=== PATIENT | female | born 1930 | race Caucasian/White ===

== ENCOUNTER 2017-01-03 13:20 | Inpatient (IN) | payer MEDICARE, OTHER ==
[~2017-01-03] VITALS: Ht 160 cm; Wt 67.0 kg
[~2017-01-03 13:20] MED LIST: ALLERGY PILL PO; AMBI10TA PO; AMLO2.5T PO; ASPI325T PO; CALC600T10 PO; DONE5TAB14 PO; FOLI20CA PO; LEXA10TA PO; LOSA100T3 PO; MEGE40SU PO; METO25 PO; OXYB10TA PO; PREV10CA PO; TAB-TAB PO
[2017-01-03 13:31] VITALS: BP 175/87; PULSE 79; RESP 19; TEMP 97.9; O2SAT 94
[2017-01-03] MEDS ORDERED: SODIUM CHLORIDE 0.9% FLUSH 5 ML FLUSH IVF PRN (13:45)
[2017-01-03] MEDS ORDERED: ONDANSETRON HCL 4 MG/2 ML VIAL IV PUSH ONE (14:00)
[2017-01-03] MEDS ORDERED: HYDROmorphone HCL PF 1 MG/ML VIAL IV PUSH ONE (14:00)
[2017-01-03 14:01] LABS: BLOOD, URINE NEG (NEG); COMMENT (UR) CATH-CULT NOT IND; CULTURE IF INDICATED CATH CULTURE NOT IND; GLUCOSE,URINE NEG (NEG); HYALINE CAST, URINE 11 /lpf (RARE); KETONE, URINE NEG (NEG); MUCUS URINE FEW /lpf (OCC); NITRITE,URINE NEG (NEG); SQUAMOUS EPITHELIAL CELL URINE 1 /hpf (0-5); URINE COLOR LIGHT-YELLOW (YELLW/STRAW)
[2017-01-03 14:09] LABS: AUTOMATED NEUTROPHIL # 15.6 TH/MM3 (1.8-7.7); BASOPHIL % 0.2 % (0.0-2.0); EOSINOPHIL % 0.1 % (0.0-4.0); HEMATOCRIT 39.7 % (35.0-46.0); HEMO FLAGS DIFF FINAL; LYMPH % 8.5 % (9.0-44.0); LYMPHOCYTE # 1.5 TH/MM3 (1.0-4.8); MEAN CELL VOLUME 86.3 FL (80.0-100.0); MEAN CORPUSCULAR HEMOGLOBIN 29.4 PG (27.0-34.0); MONO % 4.9 % (0.0-8.0); NEUT % 86.3 % (16.0-70.0); PLATELET COUNT 189 TH/MM3 (150-450); RED BLOOD COUNT 4.61 MIL/MM3 (4.00-5.30)
[2017-01-03 14:12] LABS: ALT (GPT) 24 U/L (10-53); ANION GAP 8 MEQ/L (5-15); APTT (PATIENT) 39.5 SEC (24.3-30.1); AST (GOT) 19 U/L (15-37); BICARBONATE 27.2 MEQ/L (21.0-32.0); BLOOD UREA NITROGEN 30 MG/DL (7-18); CHLORIDE 108 MEQ/L (98-107); GLOMERULAR FILTRATION RATE 47 ML/MIN (>89); INTERNATIONAL NORMALIZED RATIO 3.6 RATIO; POTASSIUM 3.1 MEQ/L (3.5-5.1); SODIUM (NA) 143 MEQ/L (136-145)
[2017-01-03 14:14] LABS: ALKALINE PHOSPHATASE 64 U/L (45-117); TOTAL BILIRUBIN ADULT 0.6 MG/DL (0.2-1.0)
--- NOTE | 2017-01-03 14:21 | PD ---
HPI Chief Complaint: Hip Injury Time Seen by Provider: 13:43 Travel History International Travel<30 days: No Contact w/Intl Traveler<30days: No Traveled to known affect area: No History of Present Illness HPI 86-year-old female with history of multiple medical issues, currently on Coumadin according to her daughter, presents to the [facility] because she fell out of bed this morning and has not been able to walk, is complaining of right hip pain. She denies any head injury or loss of consciousness. Pain at rest is currently a 2 out of 10. She denies any other injuries. Patient states that she had tried to go walking on her own and fell out of bed. Modifying Factors: None Associated Signs & Symptoms: Fall out of bed, right hip pain Risk Factors: Elderly, legally blind PFSH Past Medical History Hx Anticoagulant Therapy: Yes (ASA) Arthritis: Yes (right hand) Asthma: No Autoimmune Disease: No Blood Disorders: No Cancer: No Cardiovascular Problems: Yes (SC, HTN) High Cholesterol: Yes Chemotherapy: No COPD: No Diminished Hearing: No Endocrine: No Genitourinary: No Immune Disorder: No Implanted Vascular Access Dvce: Yes Musculoskeletal: No Neurologic: No Psychiatric: No Reproductive: No Respiratory: No Myocardial Infarction: Yes (x2) Radiation Therapy: No Past Surgical History Abdominal Surgery: Yes (HYSTERECTOMY 1989) AICD: No Arteriovenous Shunt: No Cardiac Surgery: Yes (FOUR VESSEL BYPASS 1995) Ear Surgery: No Endocrine Surgery: No Eye Surgery: Yes (LENS IMPLANTS IN BOTH EYES.) Genitourinary Surgery: No Gynecologic Surgery: No Insulin Pump: No Joint Replacement: No Oral Surgery: No Pacemaker: No Other Surgery: Yes Social History Alcohol Use: No Tobacco Use: No Substance Use: No Allergies-Medications (Allergen,Severity, Reaction): Coded Allergies: Gentian Karen (Verified Allergy, Intermediate, Rash, 01/03/17) Petrolatum (Verified Allergy, Intermediate, Rash, 01/03/17) BASED OINTMENTS Levaquin (Verified Allergy, Unknown, 01/03/17) Reported Meds & Prescriptions Reported Meds & Active Scripts Active Reported Donepezil 5 Mg Tab 5 Mg PO DAILY Oxybutynin Chloride Er (Oxybutynin Chloride) 10 Mg Tab 10 Mg PO DAILY Amlodipine Besylate 2.5 mg (Amlodipine Besylate) 2.5 Mg Tab 1 Tab PO DAILY Megestrol Acetate 40 Mg/Ml Madelaine 40 Mg PO DAILY Lexapro (Escitalopram Oxalate) 10 Mg Tab 10 Mg PO Losartan Potassium-HCT 100-12.5 1 Tab Tab 1 Tab PO DAILY Folic Acid 20 Mg Cap 400 Mcg PO DAILY Prevagen (Apoaequorin) 10 Mg Cap 10 Mg PO Calcium + D (Calcium Carbonate-Vitamin D) 600 Mg Tab 1,200 Mg PO DAILY Multivitamin (Multivitamins) 1 Tab Tab 1 Tab PO DAILY [Allergy Pill] 25 Mg PO DAILY Aspirin 325 mg (Aspirin) 325 Mg Tab 325 Mg PO DAILY Ambien (Zolpidem Tartrate) 10 Mg Tab 10 Mg PO HS Metoprolol Tartrate 25 mg (Metoprolol Tartrate) 25 Mg Tab 25 Mg PO BID Review of Systems Except as stated in HPI: all other systems reviewed are Neg Physical Exam Narrative GENERAL: Well-nourished, well-developed elderly white female patient in no acute distress at rest. Awake and alert. SKIN: Warm and dry. HEAD: Normocephalic. EYES: No scleral icterus. No injection or drainage. Right eye conjunctival cloudiness notable, blind. NECK: Supple, trachea midline. CARDIOVASCULAR: Irregularly irregular. RESPIRATORY: Breath sounds equal bilaterally. No accessory muscle use. GASTROINTESTINAL: Abdomen soft, non-tender, nondistended. Pelvis: Stable, tender to palpation at the right hip area with decrease right hip flexion and extension secondary to pain. Right leg is shortened and externally rotated. Neurovascularly intact. MUSCULOSKELETAL: No cyanosis, or edema. BACK: Nontender without obvious deformity. No CVA tenderness. NEUROLOGICAL: Awake and alert. Blind, faces symmetrical. Motor and sensory grossly within normal limits. Five out of 5 muscle strength in all muscle groups , right leg limited by hip pain. Normal speech. Data Data Last Documented VS Vital Signs Date Time Temp Pulse Resp B/P Pulse Ox O2 Delivery O2 Flow Rate FiO2 01/03/17 13:31 97.9 79 19 175/87 94 Orders Electrocardiogram (01/03/17 13:36) Complete Blood Count With Diff (01/03/17 13:36) Comprehensive Metabolic Panel (01/03/17 13:36) Prothrombin Time / Inr (Pt) (01/03/17 13:36) Act Partial Throm Time (Ptt) (01/03/17 13:36) Urinalysis - C+S If Indicated (01/03/17 13:36) Type And Screen (01/03/17 13:36) Chest, Single Ap (01/03/17 13:36) Hip, Uni(Ap&Lat) W Ap Pelvis (01/03/17 13:36) Iv Access Insert/Monitor (01/03/17 13:36) Urinary Catheter Insert/Apply (01/03/17 13:36) Oximetry (01/03/17 13:36) Ecg Monitoring (01/03/17 13:36) Sodium Chloride 0.9% Flush (Ns Flush) (01/03/17 13:45) Hydromorphone Pf Inj (Dilaudid Pf Inj) (01/03/17 14:00) Ondansetron Inj (Zofran Inj) (01/03/17 14:00) Consult Orthopedic (01/03/17 ) Labs Laboratory Tests Test 01/03/17 01/03/17 01/03/17 13:30 13:40 13:45 Urine Color LIGHT-YELLOW Urine Turbidity CLEAR Urine pH 6.0 Urine Specific [place] 1.009 Urine Protein NEG mg/dL Urine Glucose (UA) NEG mg/dL Urine Ketones NEG mg/dL Urine Occult Blood NEG Urine Nitrite NEG Urine Bilirubin NEG Urine Urobilinogen LESS THAN 2.0 MG/DL Urine Leukocyte Esterase NEG Urine RBC 2 /hpf Urine WBC 2 /hpf Urine Squamous Epithelial 1 /hpf Cells Urine Hyaline Casts 11 /lpf Urine Mucus FEW /lpf Microscopic Urinalysis Comment CATH-CULT NOT IND Prothrombin Time 42.0 SEC Prothromb Time International 3.6 RATIO Ratio Activated Partial 39.5 SEC Thromboplast Time Sodium Level 143 MEQ/L Potassium Level 3.1 MEQ/L Chloride Level 108 MEQ/L Carbon Dioxide Level 27.2 MEQ/L Anion Gap 8 MEQ/L Blood Urea Nitrogen 30 MG/DL Creatinine 1.11 MG/DL Estimat Glomerular Filtration 47 ML/MIN Rate Random Glucose 132 MG/DL Calcium Level 8.9 MG/DL Total Bilirubin 0.6 MG/DL Aspartate Amino Transf 19 U/L (AST/SGOT) Alanine Aminotransferase 24 U/L (ALT/SGPT) Alkaline Phosphatase 64 U/L Total Protein 6.6 GM/DL Albumin 3.3 GM/DL Blood Type A POSITIVE Antibody Screen NEGATIVE Blood Bank Comment White Blood Count 18.0 TH/MM3 Red Blood Count 4.61 MIL/MM3 Hemoglobin 13.5 GM/DL Hematocrit 39.7 % Mean Corpuscular Volume 86.3 FL Mean Corpuscular Hemoglobin 29.4 PG Mean Corpuscular Hemoglobin 34.0 % Concent Red Cell Distribution Width 15.0 % Platelet Count 189 TH/MM3 Mean Platelet Volume 8.4 FL Neutrophils (%) (Auto) 86.3 % Lymphocytes (%) (Auto) 8.5 % Monocytes (%) (Auto) 4.9 % Eosinophils (%) (Auto) 0.1 % Basophils (%) (Auto) 0.2 % Neutrophils # (Auto) 15.6 TH/MM3 Lymphocytes # (Auto) 1.5 TH/MM3 Monocytes # (Auto) 0.9 TH/MM3 Eosinophils # (Auto) 0.0 TH/MM3 Basophils # (Auto) 0.0 TH/MM3 CBC Comment DIFF FINAL Differential Comment MDM Medical Decision Making Medical Screen Exam Complete: Yes Emergency Medical Condition: Yes Medical Record Reviewed: Yes Interpretation(s) Laboratory Tests Test 01/03/17 01/03/17 01/03/17 13:30 13:40 13:45 Urine Mucus FEW /lpf (OCC) Prothrombin Time 42.0 SEC (9.8-11.6) Activated Partial 39.5 SEC Thromboplast Time (24.3-30.1) Potassium Level 3.1 MEQ/L (3.5-5.1) Chloride Level 108 MEQ/L (98-107) Blood Urea Nitrogen 30 MG/DL (7-18) Creatinine 1.11 MG/DL (0.50-1.00) Estimat Glomerular Filtration 47 ML/MIN (>89) Rate Random Glucose 132 MG/DL (74-106) Albumin 3.3 GM/DL (3.4-5.0) White Blood Count 18.0 TH/MM3 (4.0-11.0) Neutrophils (%) (Auto) 86.3 % (16.0-70.0) Lymphocytes (%) (Auto) 8.5 % (9.0-44.0) Neutrophils # (Auto) 15.6 TH/MM3 (1.8-7.7) Differential Diagnosis Fall, right hip injuryfractures versus dislocation Narrative Course X-ray shows a right femoral neck fracture. At this point, the case was discussed with Dr. Hess who is in the OR and he states he would like the patient to be medically admitted with orthopedic consult. Case is discussed with Dr. Godwin for admission. Diagnosis Primary Impression: Fracture of femoral neck, right Admitting Information Admitting Physician Requests: Admit Daisy Tucker MD Jan 03, 2017 14:21
--- NOTE | 2017-01-03 14:53 | RADRPT ---
EXAM DATE/TIME: 01/03/2017 14:32 [facility] COMPARISON: CHEST SINGLE AP, March 23, 2016, 9:01. INDICATIONS : Fell today. MEDICAL HISTORY : None. SURGICAL HISTORY : CABG. ENCOUNTER: Initial ACUITY: 1 day PAIN SCORE: 0/10 LOCATION: Bilateral chest FINDINGS: Sternal wires from a previous mediastinum are noted. There is elevation of both the right and left h emidiaphragms. The lungs are clear. Heart and pulmonary vascularity are normal. Portions of the atul ny skeleton visualized are unremarkable. CONCLUSION: 1. Negative chest. 2. There is no pneumothorax. I do not see a displaced fracture. Earnest Estrella MD FACR on January 03, 2017 at 14:48 Board Certified Radiologist. This report was verified electronically.
--- NOTE | 2017-01-03 15:00 | RADRPT ---
EXAM DATE/TIME: 01/03/2017 14:32 [facility] COMPARISON: No previous studies available for comparison. INDICATIONS : Fell today. MEDICAL HISTORY : None. SURGICAL HISTORY : CABG. ENCOUNTER: Initial ACUITY: 1 day PAIN SCORE: 10/10 LOCATION: Right hip and pelvis FINDINGS: There is a subcapital fracture of the right femoral neck. The femoral head is aligned with the aceta bulum. Pelvis is otherwise intact. CONCLUSION: Subcapital fracture right femoral neck. Earnest Estrella MD FACR on January 03, 2017 at 14:53 Board Certified Radiologist. This report was verified electronically.
[2017-01-03] MEDS ORDERED: BISACODYL 10 MG SUPP PR PRN (15:30)
[2017-01-03] MEDS ORDERED: ACETAMINOPHEN 325 MG TAB PO PRN (15:30)
[2017-01-03] MEDS ORDERED: NALOXONE HCL 0.4 MG/ML AMP IV PRN (15:30)
[2017-01-03] MEDS ORDERED: MAGNESIUM HYDROXIDE SUSP 30 ML CUP PO PRN (15:30)
[2017-01-03] MEDS ORDERED: SODIUM CHLORIDE 0.9% FLUSH 5 ML FLUSH FLUSH PRN (15:30)
[2017-01-03] MEDS ORDERED: ONDANSETRON HCL 4 MG/2 ML VIAL IVP PRN (15:30)
[2017-01-03] MEDS ORDERED: HYZA50TA2 PO (15:50)
[2017-01-03] MEDS ORDERED: LEXA10TA PO (15:50)
[2017-01-03] MEDS ORDERED: CALC600T10 PO (15:50)
[2017-01-03] MEDS ORDERED: ASPI-156 PO (15:50)
[2017-01-03] MEDS ORDERED: FERR325T PO (15:50)
[2017-01-03] MEDS ORDERED: GNP3TAB PO (15:50)
[2017-01-03] MEDS ORDERED: FURO1TAB62 PO (15:50)
[2017-01-03] MEDS ORDERED: MEGE40SU PO (15:50)
[2017-01-03] MEDS ORDERED: WARF-60 PO (15:50)
[2017-01-03] MEDS ORDERED: ALAV10TA10 PO (15:50)
[2017-01-03] MEDS ORDERED: DONE10TA7 PO (15:50)
[2017-01-03] MEDS ORDERED: MIRTA15 PO (15:54)
[2017-01-03] MEDS ORDERED: METO25TA3 PO (15:54)
[2017-01-03] MEDS ORDERED: K-TA10TA PO (15:54)
[2017-01-03] MEDS ORDERED: OXYB10TA PO (15:54)
[2017-01-03 16:26] VITALS: O2SAT 94
[2017-01-03 16:27] VITALS: BP 123/58; PULSE 74; RESP 15; O2SAT 93
[2017-01-03] MEDS ORDERED: HYDROmorphone HCL PF 1 MG/ML VIAL IV PUSH PRN (16:45)
[2017-01-03] MEDS: oxyCODONE/ACETAMINOPHEN 5 MG/325 MG TAB PO PRN (17:48)
--- NOTE | 2017-01-03 20:05 | PD.CONS ---
cc: Tawanda Hess MD Right Femoral Neck Fracture (Shabana Archer) [facility] Service Orthopedic Surgeons Consult Requested By ER Staff Reason for Consult R Femoral Neck Fracture Primary Care Physician Carla Catherine MD Admission Diagnosis fall/right hip fracture Diagnoses: (1) Fracture of femoral neck, right Diagnosis: Principal (2) Deep vein blood clot of left lower extremity (3) Neurocognitive disorder (4) HLD (hyperlipidemia) (5) HTN (hypertension) (6) Rhabdomyolysis (7) CAD (coronary artery disease) (8) Ataxic gait Chief Complaint: R Femoral Neck Fx (Shabana Archer) History of Present Illness 86 year old female presented to [facility] ER after a trip and fall incident this morning. She complained of right hip pain after the fall. Radiographs revealed a right femoral neck fracture. She was admitted to [facility] and orthopaedic consultation was requested. The patient lives in an assisted living facility. She is legally blind and requires assistance with transfers. She tried to get up on her own this morning and sustained the fall. She had immediate pain to her right hip after the injury. She has had no other injuries to the right extremity prior to this injury. She was placed on Coumadin a couple weeks ago at [facility] after a DVT was found in her left groin. Her INR is 3.6 today. History is obtained from the patient and medical records. The patient does have dementia. No other injuries noted during the fall. (Shabana Archer) History of Present Illness The patient was admitted to the medical service with orthopedic consultation requested. She denies other extremity injury at the time of her fall. (Tawanda Hess MD) Review of Systems well outlined in medical records (Shabana Archer) 14 point review of systems reviewed and noted. (Tawanda Hess MD) Past Family Social History Past Medical History Dementia, HTN, DVT, CAD, Blind Past Surgical History CABG, Hysterectomy. Lens Sx Reported Medications see medical record (Shabana Archer) Allergies: Coded Allergies: Gentian Karen (Verified Allergy, Intermediate, Rash, 01/03/17) Petrolatum (Verified Allergy, Intermediate, Rash, 01/03/17) BASED OINTMENTS Levaquin (Verified Allergy, Unknown, 01/03/17) Active Ordered Medications Current Medications Medications (Trade) Dose Ordered Sig/Antonio Route Start Time Stop Time Status Last Admin (NS Flush) 2 ml UNSCH PRN FLUSH 01/03/17 15:30 (NS Flush) 2 ml BID FLUSH 01/03/17 21:00 (Tylenol) 650 mg Q4H PRN PO 01/03/17 15:30 (Zofran Inj) 4 mg Q6H PRN IVP 01/03/17 15:30 (Dulcolax Supp) 10 mg DAILY PRN MO 01/03/17 15:30 (Milk Of Magnesia Liq) 30 ml Q12H PRN PO 01/03/17 15:30 (Narcan Inj) 0.4 mg UNSCH PRN IV 01/03/17 15:30 (Lopressor) 25 mg BID PO 01/03/17 21:00 (Norvasc) 2.5 mg DAILY PO 01/04/17 09:00 (Aricept) 5 mg DAILY PO 01/04/17 09:00 (Ditropan) 10 mg DAILY PO 01/04/17 09:00 (Pill Splitter) 1 ea UNSCH PRN OTHER 01/04/17 09:00 (Cozaar) 100 mg DAILY PO 01/04/17 09:00 (Microzide) 12.5 mg DAILY PO 01/04/17 09:00 (Percocet 5-325 Mg) 1 tab Q6H PRN PO 01/03/17 16:45 01/03/17 17:48 (Dilaudid Pf Inj) 0.5 mg Q4H PRN IV PUSH 01/03/17 16:45 Reported Meds & Active Scripts Active Reported K-Tab (Potassium Chloride) 10 Meq Tab 10 Meq PO DAILY Oxybutynin ER 24 HR (Oxybutynin Chloride) 10 Mg Tab 10 Mg PO BID Mirtazapine 15 Mg Tab 15 Mg PO HS Metoprolol Tartrate 25 Mg Tab 12.5 Mg PO BID Warfarin 6 Mg Tab 6 Mg PO MOTUWEFRSA @ HS Gnp Melatonin (Melatonin) 3 Mg Tab 3 Mg PO HS Megestrol Liq (Megestrol Acetate) 40 Mg/Ml Susp 400 Mg PO BID Hyzaar (Losartan-Hydrochlorothiazide) 50-12.5 Mg Tab 1 Tab PO DAILY Alavert (Loratadine) 10 Mg Tab 10 Mg PO DAILY Lasix (Furosemide) 20 Mg Tab 20 Mg PO DAILY Ferrous Sulfate 325 Mg Tab 325 Mg PO BID Lexapro (Escitalopram Oxalate) 10 Mg Tab 10 Mg PO HS Donepezil 10 Mg Tab 10 Mg PO HS Calcium + D3 (Calcium Carbonate-Cholecalciferol) 600-200 Mg-Unit Tab 1 Tab PO DAILY Ecotrin (Aspirin) 325 Mg Tab 325 Mg PO HS Family History unrelated Social History Lives in assisted living. Denies alcohol or smoking. (Shabana Archer) Physical Exam Vital Signs Vital Signs Date Time Temp Pulse Resp B/P Pulse Ox O2 Delivery O2 Flow Rate FiO2 01/03/17 16:27 74 15 123/58 93 Room Air 01/03/17 16:26 94 21 01/03/17 13:31 97.9 79 19 175/87 94 Physical Exam RLE: Tenderness to palpation over right hip. LE is externally rotated. No swelling, ecchymosis or erythema noted. Good pedal pulses. Neurovascular intact. No calf pain. Negative Aleksandar's sign. Pain illicited with any attempts at range of motion. Freely able to wiggle toes. Laboratory Laboratory Tests Test 01/03/17 01/03/17 01/03/17 13:30 13:40 13:45 Urine Color LIGHT-YELLOW Urine Turbidity CLEAR Urine pH 6.0 Urine Specific [place] 1.009 Urine Protein NEG Urine Glucose (UA) NEG Urine Ketones NEG Urine Occult Blood NEG Urine Nitrite NEG Urine Bilirubin NEG Urine Urobilinogen LESS THAN 2.0 Urine Leukocyte Esterase NEG Urine RBC 2 Urine WBC 2 Urine Squamous Epithelial 1 Cells Urine Hyaline Casts 11 Urine Mucus FEW Microscopic Urinalysis Comment CATH-CULT NOT IND Prothrombin Time 42.0 Prothromb Time International 3.6 Ratio Activated Partial 39.5 Thromboplast Time Sodium Level 143 Potassium Level 3.1 Chloride Level 108 Carbon Dioxide Level 27.2 Anion Gap 8 Blood Urea Nitrogen 30 Creatinine 1.11 Estimat Glomerular Filtration 47 Rate Random Glucose 132 Calcium Level 8.9 Total Bilirubin 0.6 Aspartate Amino Transf 19 (AST/SGOT) Alanine Aminotransferase 24 (ALT/SGPT) Alkaline Phosphatase 64 Total Protein 6.6 Albumin 3.3 Blood Type A POSITIVE Antibody Screen NEGATIVE Blood Bank Comment White Blood Count 18.0 Red Blood Count 4.61 Hemoglobin 13.5 Hematocrit 39.7 Mean Corpuscular Volume 86.3 Mean Corpuscular Hemoglobin 29.4 Mean Corpuscular Hemoglobin 34.0 Concent Red Cell Distribution Width 15.0 Platelet Count 189 Mean Platelet Volume 8.4 Neutrophils (%) (Auto) 86.3 Lymphocytes (%) (Auto) 8.5 Monocytes (%) (Auto) 4.9 Eosinophils (%) (Auto) 0.1 Basophils (%) (Auto) 0.2 Neutrophils # (Auto) 15.6 Lymphocytes # (Auto) 1.5 Monocytes # (Auto) 0.9 Eosinophils # (Auto) 0.0 Basophils # (Auto) 0.0 CBC Comment DIFF FINAL Differential Comment (Shabana Archer) Physical Exam No other localizing signs of extremity injury. (Tawanda Hess MD) Result Diagram: 01/03/17 1345 01/03/17 1340 Imaging Last 48 hours Impressions Hip and Pelvis X-Ray 01/03/17 1336 Signed Impressions: Service Date/Time: Tuesday, January 03, 2017 14:32 - CONCLUSION: Subcapital fracture right femoral neck. Earnest Estrella MD FACR Chest X-Ray 01/03/17 1336 Signed Impressions: Service Date/Time: Tuesday, January 03, 2017 14:32 - CONCLUSION: 1. Negative chest. 2. There is no pneumothorax. I do not see a displaced fracture. Earnest Estrella MD FACR Course see medical record (Shabana Archer) Assessment & Plan Problem List: (1) Fracture of femoral neck, right (2) Deep vein blood clot of left lower extremity (3) Neurocognitive disorder (4) HLD (hyperlipidemia) (5) HTN (hypertension) (6) CAD (coronary artery disease) (7) Weakness Assessment and Plan The findings were discussed with the patient. Recommendations are given for prosthetic replacement of right femoral neck fracture, to allow for mobilization and pain control. Surgical management will require stabilization of INR levels. Disposition pending medical clearance and coagulation stabilization. Written by Shabana Archer (Ashley), acting as scribe for Dr. Hess on at 20:08. (Shabana Archer) Assessment and Plan The patient may be treated by myself for one of my partners depending on the timing and normalization of coagulation studies. The exam, history, and the medical decision-making described in the above note were completed with the assistance of the mid-level provider. I reviewed and agree with the findings presented. I attest that I had a [id number] encounter with the patient on the same day, and personally performed and documented my assessment and findings in the medical record. (Tawanda Hess MD) Shabana Archer Jan 03, 2017 20:05 Tawanda Hess MD Jan 03, 2017 22:24
[2017-01-03 20:40] VITALS: BP 117/57; PULSE 61; RESP 17; TEMP 97.1; O2SAT 94
[2017-01-03] MEDS: SODIUM CHLORIDE 0.9% FLUSH 5 ML FLUSH FLUSH SCH (21:00)
[2017-01-03] MEDS: METOPROLOL TARTRATE 25 MG TAB PO SCH (21:00)
--- NOTE | 2017-01-03 23:10 | HHI.HP ---
[facility] Carla Catherine MD Admission Diagnosis fall/right hip fracture Diagnoses: (1) Fracture of femoral neck, right Diagnosis: Principal (2) Deep vein blood clot of left lower extremity (3) Neurocognitive disorder (4) HLD (hyperlipidemia) (5) HTN (hypertension) (6) Rhabdomyolysis (7) CAD (coronary artery disease) (8) Ataxic gait Travel History International Travel<30 Days: No Contact w/Intl Traveler <30 Da: No Traveled to Known Affected Are: No History of Present Illness Ms. Hayes is a pleasant 86-year-old female with a history of atrial fibrillation, DVT, blindness who presented to the emergency department on 2016 after she fell out of her bed. Patient denies any chest pain, shortness of breath, dizziness or lightheadedness prior to her fall. Hip and pelvis x- ray shows subcapital fracture of the right femoral neck. Patient denies any changes in her bowel or bladder habits. Review of Systems ROS Limitations: Other (negative except as noted in the history of present illness) Past Family Social History Past Medical History Dementia, HTN, DVT, CAD, Blind Past Surgical History CABG, Hysterectomy. Lens Sx Reported Medications Donepezil 5 Mg Tab 5 Mg PO DAILY Oxybutynin Chloride Er (Oxybutynin Chloride) 10 Mg Tab 10 Mg PO DAILY Amlodipine Besylate 2.5 mg (Amlodipine Besylate) 2.5 Mg Tab 1 Tab PO DAILY Megestrol Acetate 40 Mg/Ml Madelaine 40 Mg PO DAILY Lexapro (Escitalopram Oxalate) 10 Mg Tab 10 Mg PO Losartan Potassium-HCT 100-12.5 1 Tab Tab 1 Tab PO DAILY Folic Acid 20 Mg Cap 400 Mcg PO DAILY Prevagen (Apoaequorin) 10 Mg Cap 10 Mg PO Calcium + D (Calcium Carbonate-Vitamin D) 600 Mg Tab 1,200 Mg PO DAILY Multivitamin (Multivitamins) 1 Tab Tab 1 Tab PO DAILY [Allergy Pill] 25 Mg PO DAILY Aspirin 325 mg (Aspirin) 325 Mg Tab 325 Mg PO DAILY Ambien (Zolpidem Tartrate) 10 Mg Tab 10 Mg PO HS Metoprolol Tartrate 25 mg (Metoprolol Tartrate) 25 Mg Tab 25 Mg PO BID Allergies: Coded Allergies: Gentian Karen (Verified Allergy, Intermediate, Rash, 01/03/17) Petrolatum (Verified Allergy, Intermediate, Rash, 01/03/17) BASED OINTMENTS Levaquin (Verified Allergy, Unknown, 01/03/17) Family History Father had diabetes. Mother had eye problems. Social History Lives in assisted living. Denies alcohol or smoking. Physical Exam Vital Signs Vital Signs Date Time Temp Pulse Resp B/P Pulse Ox O2 Delivery O2 Flow Rate FiO2 01/03/17 20:40 97.1 61 17 117/57 94 01/03/17 16:27 74 15 123/58 93 Room Air 01/03/17 16:26 94 21 01/03/17 13:31 97.9 79 19 175/87 94 Physical Exam GENERAL: This is a well-nourished, well-developed patient, in no apparent distress. Legally blind. SKIN: No rashes, ecchymoses or lesions. Warm and dry. HEAD: Atraumatic. Normocephalic. No temporal or scalp tenderness. EYES:No injection or drainage. Right eye cloudy conjunctiva noted. ENT: Nose without bleeding, purulent drainage or septal hematoma. Airway patent. NECK: Trachea midline. No lymphadenopathy. Supple, nontender, no meningeal signs. CARDIOVASCULAR: Irregularly irregular without murmurs, gallops, or rubs. No JVD. RESPIRATORY: Clear to auscultation. Breath sounds equal bilaterally. No wheezes , rales, or rhonchi. GASTROINTESTINAL: Abdomen soft, non-tender, nondistended. No guarding. MUSCULOSKELETAL: Extremities without clubbing, cyanosis, or edema. Pain on right lower ext movement. NEUROLOGICAL: Awake and alert. Cranial nerves II through XII intact. No focal neurological deficits. Normal speech. Laboratory Laboratory Tests Test 01/03/17 01/03/17 01/03/17 13:30 13:40 13:45 Urine Color LIGHT-YELLOW Urine Turbidity CLEAR Urine pH 6.0 Urine Specific [place] 1.009 Urine Protein NEG Urine Glucose (UA) NEG Urine Ketones NEG Urine Occult Blood NEG Urine Nitrite NEG Urine Bilirubin NEG Urine Urobilinogen LESS THAN 2.0 Urine Leukocyte Esterase NEG Urine RBC 2 Urine WBC 2 Urine Squamous Epithelial 1 Cells Urine Hyaline Casts 11 Urine Mucus FEW Microscopic Urinalysis Comment CATH-CULT NOT IND Prothrombin Time 42.0 Prothromb Time International 3.6 Ratio Activated Partial 39.5 Thromboplast Time Sodium Level 143 Potassium Level 3.1 Chloride Level 108 Carbon Dioxide Level 27.2 Anion Gap 8 Blood Urea Nitrogen 30 Creatinine 1.11 Estimat Glomerular Filtration 47 Rate Random Glucose 132 Calcium Level 8.9 Total Bilirubin 0.6 Aspartate Amino Transf 19 (AST/SGOT) Alanine Aminotransferase 24 (ALT/SGPT) Alkaline Phosphatase 64 Total Protein 6.6 Albumin 3.3 Blood Type A POSITIVE Antibody Screen NEGATIVE Blood Bank Comment White Blood Count 18.0 Red Blood Count 4.61 Hemoglobin 13.5 Hematocrit 39.7 Mean Corpuscular Volume 86.3 Mean Corpuscular Hemoglobin 29.4 Mean Corpuscular Hemoglobin 34.0 Concent Red Cell Distribution Width 15.0 Platelet Count 189 Mean Platelet Volume 8.4 Neutrophils (%) (Auto) 86.3 Lymphocytes (%) (Auto) 8.5 Monocytes (%) (Auto) 4.9 Eosinophils (%) (Auto) 0.1 Basophils (%) (Auto) 0.2 Neutrophils # (Auto) 15.6 Lymphocytes # (Auto) 1.5 Monocytes # (Auto) 0.9 Eosinophils # (Auto) 0.0 Basophils # (Auto) 0.0 CBC Comment DIFF FINAL Differential Comment Result Diagram: 01/03/17 1345 01/03/17 1340 Imaging Last Impressions Hip and Pelvis X-Ray 01/03/171335 Signed Impressions: Service Date/Time: Tuesday, January 03, 2017 14:32 - CONCLUSION: Subcapital fracture right femoral neck. Earnest Estrella MD FACR Chest X-Ray 01/03/176 Signed Impressions: Service Date/Time: Tuesday, January 03, 2017 14:32 - CONCLUSION: 1. Negative chest. 2. There is no pneumothorax. I do not see a displaced fracture. Earnest Estrella MD FACR Assessment and Plan Problem List: (1) Fracture of femoral neck, right ICD Code: S72.001A Status: Acute (2) Atrial fibrillation ICD Code: I48.91 Status: Acute (3) History of DVT (deep vein thrombosis) ICD Code: Z86.718 Status: Acute (4) HTN (hypertension) ICD Code: I10 Status: Chronic Assessment and Plan Ms. Hayes is a pleasant 86-year-old legally blind female with a history of atrial fibrillation and DVT who presents to the emergency department on 2016 due to mechanical fall from her bed. X-ray studies show right femoral neck fracture. - Right femoral neck fracture - ED physician discussed with orthopedic surgeon. It was not clear if patient will undergo surgery or not. - Will wait for Orthopedic consult. Patient's INR is 3.6 (On warfarin). If surgery is planned, INR can be reversed with FFP and possibly oral Vitamin K. - Continue pain medications - Tylenol, Percocet, Dilaudid when necessary. - Atrial fibrillation - History of DVT - continue metoprolol 25 mg twice a day. Patient is on warfarin for anticoagulations. Will hold it until orthopedic surgery plan is known. - Hypertension - continue amlodipine 2.5 mg, losartan 100 mg, HCTZ 12.5 mg daily. - Dementia - continue donepezil 5 mg daily - Blindness - due to Glaucoma, cataract. No acute issues. Full code. INR 3.6 Physician Certification 2 Midnight Certification Type: Admission for Inpatient Services Order for Inpatient Services The services are ordered in accordance with Medicare regulations or non- Medicare payer requirements, as applicable. In the case of services not specified as inpatient-only, they are appropriately provided as inpatient services in accordance with the 2-midnight benchmark. Estimated LOS (days): 3 days is the estimated time the patient will need to remain in the hospital, assuming treatment plan goals are met and no additional complications. Post-Hospital Plan: Not yet determined James Godwin DO Jan 03, 2017 11:10 pm
[2017-01-04] VITALS (10 sets, daily range): BP systolic 107–128; BP diastolic 52–61; PULSE 58–75; RESP 16–19; TEMP 95.6–99; O2SAT 94–99
[2017-01-04 05:09] LABS: AUTOMATED NEUTROPHIL # 9.2 TH/MM3 (1.8-7.7); BASOPHIL % 0.2 % (0.0-2.0); EOSINOPHIL # 0.3 TH/MM3 (0-0.4); EOSINOPHIL % 2.3 % (0.0-4.0); HEMO FLAGS DIFF FINAL; LYMPH % 10.5 % (9.0-44.0); LYMPHOCYTE # 1.2 TH/MM3 (1.0-4.8); MEAN CORPUSCULAR HEMOGLOBIN 29.3 PG (27.0-34.0); MEAN CORPUSCULAR HGB CONC 33.3 % (32.0-36.0); MONO % 5.2 % (0.0-8.0); NEUT % 81.8 % (16.0-70.0); PLATELET COUNT 154 TH/MM3 (150-450); RED BLOOD COUNT 4.09 MIL/MM3 (4.00-5.30); RED CELL DISTRIBUTION WIDTH 15.5 % (11.6-17.2); WHITE BLOOD COUNT 11.3 TH/MM3 (4.0-11.0)
--- NOTE | 2017-01-04 06:51 | PD.ORT.PN ---
Subjective Subjective Remarks s/p fall at [facility] right hip pain. no other complaints. on coumadin. INR 3.6 last night Objective Vitals Vital Signs Date Time Temp Pulse Resp B/P Pulse Ox O2 Delivery O2 Flow Rate FiO2 01/04/17 02:16 Nasal Cannula 01/04/17 00:55 95.6 58 18 107/57 97 01/03/17 20:40 97.1 61 17 117/57 94 01/03/17 16:27 74 15 123/58 93 Room Air 01/03/17 16:26 94 21 01/03/17 13:31 97.9 79 19 175/87 94 I/O 01/03/17 01/03/17 01/03/17 01/04/17 01/04/17 01/04/17 07:00 15:00 23:00 07:00 15:00 23:00 Intake Total 240 ml Output Total 450 ml Balance -210 ml Intake Oral 240 ml Output Urine Total 450 ml # Bowel Movements 0 Result Diagram: 01/04/17 0433 01/04/17 0433 Other Results Laboratory Tests Test 01/03/17 13:40 Prothrombin Time 42.0 SEC (9.8-11.6) Prothromb Time International 3.6 RATIO Ratio Imaging Last 24 hours Impressions Hip and Pelvis X-Ray 01/03/171335 Signed Impressions: Service Date/Time: Tuesday, January 03, 2017 14:32 - CONCLUSION: Subcapital fracture right femoral neck. Earnest Estrella MD FACR Chest X-Ray 01/03/171335 Signed Impressions: Service Date/Time: Tuesday, January 03, 2017 14:32 - CONCLUSION: 1. Negative chest. 2. There is no pneumothorax. I do not see a displaced fracture. Earnest Estrella MD FACR Objective Remarks RLE: pain with motion of hip. nvi distally Assessment & Plan Problem List: (1) Fracture of femoral neck, right (2) Deep vein blood clot of left lower extremity (3) Neurocognitive disorder (4) HLD (hyperlipidemia) (5) HTN (hypertension) (6) CAD (coronary artery disease) (7) Weakness Assessment and Plan 1) Right Femoral Neck Fx -sign consents -resume diet -INR too high to proceed -1 unit FFP and 10mg of Vit K -recheck INR after all given -NPO after MN Thanh Magana Jan 04, 2017 06:51
[2017-01-04] MEDS ORDERED: SODIUM CHLOR 0.9% 250 ML INJ 250 ML IV ONE ×2 (07:00→18:30)
[2017-01-04] MEDS ORDERED: PHYTONADIONE 10 MG/ML VIAL SQ ONE (07:00)
[2017-01-04] MEDS ORDERED: PILL SPLITTER OTHER PRN (09:00)
[2017-01-04] MEDS ORDERED: [UNRECOGNIZED DRUG - OTHER] PO SCH (09:00)
[2017-01-04] MEDS: amLODIPine BESYLATE 5 MG TAB PO SCH (10:14)
[2017-01-04] MEDS: HYDROCHLOROTHIAZIDE 12.5 MG CAP PO SCH (10:14)
[2017-01-04] MEDS: LOSARTAN 50 MG TAB PO SCH (10:14)
[2017-01-04] MEDS: METOPROLOL TARTRATE 25 MG TAB PO SCH ×2 (10:14→21:00)
[2017-01-04] MEDS: SODIUM CHLORIDE 0.9% FLUSH 5 ML FLUSH FLUSH SCH ×2 (10:15→22:55)
[2017-01-04] MEDS: OXYBUTYNIN CHLORIDE 5 MG TAB PO SCH (10:15)
[2017-01-04] MEDS: DONEPEZIL HCL 5 MG TAB PO SCH (10:15)
[2017-01-04] MEDS: oxyCODONE/ACETAMINOPHEN 5 MG/325 MG TAB PO PRN (13:44)
[2017-01-04 17:12] LABS: INTERNATIONAL NORMALIZED RATIO 1.7 RATIO; PROTHROMBIN TIME - PATIENT 18.8 SEC (9.8-11.6)
--- NOTE | 2017-01-04 17:59 | EKG ---
Date Performed: 01/03/2017 Time Performed: 15:02:03 PTAGE: 86 years EKG: Sinus rhythm WITH OCCASIONAL SUPRAVENTRICULAR PREMATURE COMPLEXES NONSPECIFIC T-WAVE ABNORMALITY Since previous t racing, no significant change noted BORDERLINE ECG PREVIOUS TRACING : 03/23/2016 06.44 DOCTOR: Eleno Beatty Interpretating Date/Time 01/04/2017 17:57:50
[2017-01-04] MEDS: LACTATED RINGER'S 1000 ML IV SCH (22:30)
[2017-01-04] MEDS: SODIUM CHLORID 0.9% 500 ML IV SCH (22:30)
[2017-01-04] MEDS ORDERED: INSULIN HUMAN REGULAR 1,000 UNITS/10 ML VIAL SQ PRN (22:30)
[2017-01-05 04:10] LABS: INTERNATIONAL NORMALIZED RATIO 1.1 RATIO; PROTHROMBIN TIME - PATIENT 12.6 SEC (9.8-11.6)
[2017-01-05 04:35] VITALS: BP 151/68; PULSE 88; RESP 18; TEMP 97.9; O2SAT 95
[2017-01-05] MEDS: METOPROLOL TARTRATE 25 MG TAB PO SCH ×2 (05:44→21:32)
[2017-01-05] MEDS ORDERED: TRANEXAMIC ACID INJ 825 MG in SODIUM CHLORIDE 0.9% INJ 100 ML IV SCH (06:15)
[2017-01-05] MEDS ORDERED: GENTAMICIN SULFATE 80 MG/2 ML VIAL ONE (06:30)
--- NOTE | 2017-01-05 06:42 | PD.ORT.PN ---
Subjective Subjective Remarks s/p fall at assisted right hip pain. no other complaints. on coumadin. INR 3.6 yesterday down to 1.1 now Objective Vitals Vital Signs Date Time Temp Pulse Resp B/P Pulse Ox O2 Delivery O2 Flow Rate FiO2 01/04/17 23:35 97.0 75 18 123/59 94 01/04/17 20:50 98.7 75 17 109/52 94 01/04/17 19:00 Nasal Cannula 2.00 01/04/17 17:53 Nasal Cannula 2.00 01/04/17 16:15 98.0 74 16 128/60 98 01/04/17 12:15 98.8 65 18 111/61 98 01/04/17 12:12 98.0 70 16 121/56 97 01/04/17 11:55 99.0 67 19 115/52 99 01/04/17 09:30 97 Nasal Cannula 2.00 01/04/17 08:00 97 Nasal Cannula 2.00 01/04/17 07:59 97.4 65 18 113/54 97 01/04/17 06:45 96.0 60 17 117/57 98 I/O 01/04/17 01/04/17 01/04/17 01/05/17 01/05/17 01/05/17 07:00 15:00 23:00 07:00 15:00 23:00 Intake Total 0 ml 360 ml 480 ml Output Total 350 ml 220 ml 500 ml Balance -350 ml 140 ml -20 ml Intake Oral 0 ml 360 ml 480 ml Output Urine Total 350 ml 220 ml 500 ml # Bowel Movements 0 0 Result Diagram: 01/04/17 0433 01/04/17 0433 Other Results Laboratory Tests Test 01/04/17 01/05/17 16:56 03:18 Prothrombin Time 18.8 SEC 12.6 SEC (9.8-11.6) (9.8-11.6) Prothromb Time International 1.7 RATIO 1.1 RATIO Ratio Imaging Last 24 hours Impressions Hip and Pelvis X-Ray 01/03/171335 Signed Impressions: Service Date/Time: Tuesday, January 03, 2017 14:32 - CONCLUSION: Subcapital fracture right femoral neck. Earnest Estrella MD FACR Chest X-Ray 01/03/171335 Signed Impressions: Service Date/Time: Tuesday, January 03, 2017 14:32 - CONCLUSION: 1. Negative chest. 2. There is no pneumothorax. I do not see a displaced fracture. Earnest Estrella MD FACR Objective Remarks RLE: pain with motion of hip. nvi distally Assessment & Plan Problem List: (1) Fracture of femoral neck, right (2) Deep vein blood clot of left lower extremity (3) Neurocognitive disorder (4) HLD (hyperlipidemia) (5) HTN (hypertension) (6) CAD (coronary artery disease) (7) Weakness Assessment and Plan 1) Right Femoral Neck Fx -sign consents -surgery today Thanh Magana Jan 05, 2017 06:42
[2017-01-05] MEDS ORDERED: VANCOMYCIN HCL 1000 MG VIAL ONE (06:47)
[2017-01-05] MEDS ORDERED: ceFAZolin 2 GM PREMIX 50 ML ONE (06:47)
--- NOTE | 2017-01-05 08:04 | PD.OP ---
cc: Bull Martinez MD Operative Report Date of Surgery: Jan 05, 2017 Preoperative Diagnosis: Displaced right femoral neck fracture Postoperative Diagnosis: Procedure: right hip hemiarthroplasty Anesthesia: Gen. Surgeon: Bull Martinez Special Event Assistant(s): DARIELA Ortiz PA-C The surgical procedure was assisted by my physician microbiology lab assistant. My P.A. presence was necessary throughout this case for the manipulation and positioning of the surgical extremity. My P.A. was assisting me throughout the duration of this procedure. The skill set of a physician microbiology lab assistant was medically necessary to complete this procedure. During the surgical case the certified surgical assistant was working at the back table and the physician microbiology lab assistant was directly assisting me. Operation and Findings: PLAN OF ACTIVITY Weight bear as tolerated. IMPLANTS USED CC videouy Corail size 12 stem with size [47] bipolar head and [+1.5] neck. DRAIN: 7 mm Warren-Childers drain DETAILS OF PROCEDURE This patient was brought into the operating room and placed on the OR table. The patient was given anesthesia. The patient received IV antibiotics. The patient was then placed in lateral decubitus position. The right hip and leg were prepped with alcohol, followed by Hibiclens and draped in a usual sterile fashion. Clean air was used for this procedure. Time out procedure was performed. The procedure began with a 5 inch incision over the posterolateral hip. The subcutaneous tissue was dissected with the Bovie. The iliotibial band were split in line with fibers. The Charnley retractor was placed. The piriformis and external rotators were released from the femur and tagged with a #1 Vicryl suture. The capsule is now incised and tagged with #1 Vicryl. The femoral neck fracture was now visualized. A corkscrew was now used to remove the femoral head. The femoral head was sized and measured. Soft tissue was now protected. The hip skid was placed underneath the femoral neck. An oscillating saw was used to make a femoral neck cut. At this point attention was turned to preparation of the proximal femur. A box osteotome was used to remove the lateral cortex of the femoral neck. The T- handle reamer was used to open the femoral canal. Next, the canal was broached. A lateralizing reamer was used to help lateralize the prosthesis. At this point a trial head and neck were placed. The hip was reduced. The patient was found to have excellent stability with good range of motion. Trial components were removed. Soft tissue and bone were thoroughly irrigated. A Corail stem was now opened. The stem was now impacted into the proximal femur. Care was taken to keep appropriate anteversion. The head and neck were now impacted onto the stem. The hip was again reduced. The hip was found to have good range of motion and good stability. Leg lengths were clinically equal. The wound was thoroughly irrigated. The capsule, piriformis and iliotibial band were closed with #1 Vicryl. Subcutaneous tissue was closed with 3-0 Vicryl. The skin was closed with yoselin. A sterile dressing was applied with Primapore. The patient was placed into a knee immobilizer. The patient was awakened and transferred to the recovery room in stable condition. Needle and sponge counts were correct. Bull Martinez MD Jan 05, 2017 08:04
[2017-01-05] MEDS ORDERED: MORPHINE SULFATE 4 MG/ML INJ IV PUSH PRN (08:15)
[2017-01-05] MEDS ORDERED: SODIUM CHLORIDE 0.9% FLUSH 5 ML FLUSH IVF PRN (08:15)
[2017-01-05] MEDS ORDERED: Post-op Orders (for Pharmacy) MISC XX ONE (08:15)
[2017-01-05] MEDS ORDERED: ERGOCALCIFEROL (VIT D2) 50,000 UNIT CAP PO ONE (08:15)
[2017-01-05] MEDS ORDERED: ACETAMINOPHEN 1000 MG/100 ML VIAL IV ONE (08:27)
[2017-01-05] MEDS: CHOLECALCIFEROL (VIT D3) 5000 UNIT CAP PO SCH (09:00)
[2017-01-05] MEDS: HYDROCHLOROTHIAZIDE 12.5 MG CAP PO SCH (09:00)
[2017-01-05] MEDS: LOSARTAN 50 MG TAB PO SCH (09:00)
[2017-01-05] MEDS: SODIUM CHLORIDE 0.9% FLUSH 5 ML FLUSH IVF SCH ×2 (09:00→21:00)
[2017-01-05] MEDS: OXYBUTYNIN CHLORIDE 5 MG TAB PO SCH (09:00)
[2017-01-05] MEDS: amLODIPine BESYLATE 5 MG TAB PO SCH (09:00)
[2017-01-05] MEDS: DONEPEZIL HCL 5 MG TAB PO SCH (09:00)
[2017-01-05] MEDS ORDERED: HYDR-3366 PO (09:03)
[2017-01-05] MEDS ORDERED: WALKER/ADULT/FO1 MIS (09:03)
[2017-01-05 10:50] VITALS: BP 112/54; PULSE 73; RESP 16; TEMP 98; O2SAT 97
--- NOTE | 2017-01-05 11:34 | RADRPT ---
EXAM DATE/TIME: 01/05/2017 09:40 [place] COMPARISON: No previous studies available for comparison. INDICATIONS: Post op right hip surgery. MEDICAL HISTORY: None. SURGICAL HISTORY: None. ENCOUNTER: Initial ACUITY: 1 day PAIN SCORE: Non-responsive. LOCATION: Right hip and pelvis FINDINGS: The patient is status post right hip replacement with prosthesis in good position. No fracture or di slocation is noted. CONCLUSION: 1. Status post right hip replacement with prosthesis in good position. Zane Hardy MD on January 05, 2017 at 11:11 Board Certified Radiologist. This report was verified electronically.
[2017-01-05] MEDS: ceFAZolin 2 GM PREMIX 50 ML IV SCH ×2 (11:59→17:35)
[2017-01-05] MEDS ORDERED: LACTATED RINGER'S 1000 ML INJ 1,000 ML IV ONE (12:00)
[2017-01-05] MEDS ORDERED: PROPOFOL 200 MG/20 ML AMP IV ONE (12:00)
[2017-01-05] MEDS ORDERED: ONDANSETRON HCL 4 MG/2 ML VIAL IV PUSH ONE (12:00)
[2017-01-05] MEDS ORDERED: SODIUM CHLOR 0.9% 250 ML INJ 250 ML IV ONE (12:00)
[2017-01-05] MEDS ORDERED: PHENYLEPH/NS 1000 MCG/10 ML SYR IV ONE (12:00)
[2017-01-05 12:50] VITALS: BP 118/59; PULSE 70; RESP 16; TEMP 98.1; O2SAT 98
[2017-01-05 13:25] VITALS: O2SAT 92
--- NOTE | 2017-01-05 14:01 | HHI.PR ---
Subjective Remarks Follow up for right hip fracture s/p right hip hemiarthroplasty. Patient is doing well post surgery. She is sitting in the chair. Does not want to be disturbed. Denies any acute concerns. Objective Vitals Vital Signs Date Time Temp Pulse Resp B/P Pulse Ox O2 Delivery O2 Flow Rate FiO2 01/05/17 13:25 92 Nasal Cannula 2.00 01/05/17 10:50 98.0 73 16 112/54 97 01/05/17 10:00 97.9 67 14 111/58 97 Nasal Cannula 2 01/05/17 09:45 81 14 112/39 95 Nasal Cannula 2 01/05/17 09:30 66 14 106/55 97 Nasal Cannula 2 01/05/17 09:15 65 14 119/57 96 Nasal Cannula 2 01/05/17 09:00 64 15 115/60 97 Nasal Cannula 2 01/05/17 08:45 60 15 106/66 98 Nasal Cannula 2 01/05/17 08:30 60 15 104/54 98 Nasal Cannula 2 01/05/17 08:17 98.2 64 12 107/48 98 Simple Mask 8 01/05/17 04:35 97.9 88 18 151/68 95 01/04/17 23:35 97.0 75 18 123/59 94 01/04/17 20:50 98.7 75 17 109/52 94 01/04/17 19:00 Nasal Cannula 2.00 01/04/17 17:53 Nasal Cannula 2.00 01/04/17 16:15 98.0 74 16 128/60 98 I/O 01/04/17 01/04/17 01/04/17 01/05/17 01/05/17 01/05/17 07:00 15:00 23:00 07:00 15:00 23:00 Intake Total 0 ml 360 ml 480 ml 1150 ml Output Total 350 ml 220 ml 500 ml 320 ml Balance -350 ml 140 ml -20 ml 830 ml Intake Oral 0 ml 360 ml 480 ml 0 ml IV Total 150 ml Other 1000 ml Output Urine Total 350 ml 220 ml 500 ml 250 ml Drainage Total 20 ml Estimated Blood Loss 50 ml # Bowel Movements 0 0 Result Diagram: 01/04/17 0433 01/04/17432 Imaging Last Impressions Hip and Pelvis X-Ray 01/05/17800 Signed Impressions: Service Date/Time: Thursday, January 05, 2017 09:40 - CONCLUSION: 1. Status post right hip replacement with prosthesis in good position. Zane Hardy MD Chest X-Ray 01/03/17 1336 Signed Impressions: Service Date/Time: Tuesday, January 03, 2017 14:32 - CONCLUSION: 1. Negative chest. 2. There is no pneumothorax. I do not see a displaced fracture. Earnest Estrella MD FACR Objective Remarks GENERAL: Alert but sleepy, sitting in her chair. NAD. SKIN: Warm and dry. HEAD: Normocephalic. EYES: No scleral icterus. No injection or drainage. NECK: Supple, trachea midline. No JVD or lymphadenopathy. CARDIOVASCULAR: Regular rate and rhythm without murmurs, gallops, or rubs. RESPIRATORY: Breath sounds equal bilaterally. No accessory muscle use. GASTROINTESTINAL: Abdomen soft, non-tender, nondistended. MUSCULOSKELETAL: No cyanosis, or edema. s/p right hip hemiarthroplasty. A/P Problem List: (1) Fracture of femoral neck, right ICD Code: S72.001A Status: Acute (2) Atrial fibrillation ICD Code: I48.91 Status: Acute (3) History of DVT (deep vein thrombosis) ICD Code: Z86.718 Status: Acute (4) HTN (hypertension) ICD Code: I10 Status: Chronic Assessment and Plan Ms. Hayes is a pleasant 86-year-old legally blind female with a history of atrial fibrillation and DVT who presents to the emergency department on 2016 due to mechanical fall from her bed. X-ray studies show right femoral neck fracture. - Right femoral neck fracture - s/p right hip hemiarthroplasty. - Lovenox 30mg Q24hrs starting 01/06/2017. - Continue pain medications - Tylenol, [place], Morphine PRN. - Dulcolax supp, Milk of Mag for Bowel movement. - Atrial fibrillation - History of DVT - continue metoprolol 25 mg twice a day. - Warfarin 6mg Qday - restarted on 01/05/2017. - Hypertension - continue amlodipine 2.5 mg, losartan 100 mg, HCTZ 12.5 mg daily. - Dementia - continue donepezil 5 mg daily - Blindness - due to Glaucoma, cataract. No acute issues. Full code. Warfarin. Discharge Plan: Patient does not want to go to a rehab. Possibly home with home health when she is ready to be discharged. James Godwin DO Jan 05, 2017 14:01
--- NOTE | 2017-01-05 14:01 | HHI.PR ---
Subjective Remarks Late entry for 01/04/2017. Follow up for right hip fracture. Ms. Hayes is doing well. Waiting for surgery. No acute concerns. Denies any fever, chills. Objective Vitals Vital Signs Date Time Temp Pulse Resp B/P Pulse Ox O2 Delivery O2 Flow Rate FiO2 01/05/17 13:25 92 Nasal Cannula 2.00 01/05/17 10:50 98.0 73 16 112/54 97 01/05/17 10:00 97.9 67 14 111/58 97 Nasal Cannula 2 01/05/17 09:45 81 14 112/39 95 Nasal Cannula 2 01/05/17 09:30 66 14 106/55 97 Nasal Cannula 2 01/05/17 09:15 65 14 119/57 96 Nasal Cannula 2 01/05/17 09:00 64 15 115/60 97 Nasal Cannula 2 01/05/17 08:45 60 15 106/66 98 Nasal Cannula 2 01/05/17 08:30 60 15 104/54 98 Nasal Cannula 2 01/05/17 08:17 98.2 64 12 107/48 98 Simple Mask 8 01/05/17 04:35 97.9 88 18 151/68 95 01/04/17 23:35 97.0 75 18 123/59 94 01/04/17 20:50 98.7 75 17 109/52 94 01/04/17 19:00 Nasal Cannula 2.00 01/04/17 17:53 Nasal Cannula 2.00 01/04/17 16:15 98.0 74 16 128/60 98 I/O 01/04/17 01/04/17 01/04/17 01/05/17 01/05/17 01/05/17 07:00 15:00 23:00 07:00 15:00 23:00 Intake Total 0 ml 360 ml 480 ml 1150 ml Output Total 350 ml 220 ml 500 ml 320 ml Balance -350 ml 140 ml -20 ml 830 ml Intake Oral 0 ml 360 ml 480 ml 0 ml IV Total 150 ml Other 1000 ml Output Urine Total 350 ml 220 ml 500 ml 250 ml Drainage Total 20 ml Estimated Blood Loss 50 ml # Bowel Movements 0 0 Result Diagram: 01/04/17 0433 01/04/17 0433 Imaging Last Impressions Hip and Pelvis X-Ray 01/05/17 0801 Signed Impressions: Service Date/Time: Thursday, January 05, 2017 09:40 - CONCLUSION: 1. Status post right hip replacement with prosthesis in good position. Zane Hardy MD Chest X-Ray 01/03/17 1336 Signed Impressions: Service Date/Time: Tuesday, January 03, 2017 14:32 - CONCLUSION: 1. Negative chest. 2. There is no pneumothorax. I do not see a displaced fracture. Earnest Estrella MD FACR Objective Remarks GENERAL: Alert, NAD. Legally blind. SKIN: Warm and dry. HEAD: Normocephalic. EYES: No scleral icterus. No injection or drainage. Right eye cloudy conjunctiva noted. NECK: Supple, trachea midline. No JVD or lymphadenopathy. CARDIOVASCULAR: Regular rate and rhythm without murmurs, gallops, or rubs. RESPIRATORY: Breath sounds equal bilaterally. No accessory muscle use. GASTROINTESTINAL: Abdomen soft, non-tender, nondistended. MUSCULOSKELETAL: No cyanosis, or edema. Right lower ext pain on any movement. BACK: Nontender without obvious deformity. No CVA tenderness. A/P Problem List: (1) Fracture of femoral neck, right ICD Code: S72.001A Status: Acute (2) Atrial fibrillation ICD Code: I48.91 Status: Acute (3) History of DVT (deep vein thrombosis) ICD Code: Z86.718 Status: Acute (4) HTN (hypertension) ICD Code: I10 Status: Chronic Assessment and Plan Ms. Hayes is a pleasant 86-year-old legally blind female with a history of atrial fibrillation and DVT who presents to the emergency department on 2016 due to mechanical fall from her bed. X-ray studies show right femoral neck fracture. - Right femoral neck fracture - Orthopedic surgery tomorrow. INR was reversed with FFP and vitamin K. - Continue pain medications - Tylenol, Percocet, Dilaudid when necessary. - Atrial fibrillation - History of DVT - continue metoprolol 25 mg twice a day. - Hypertension - continue amlodipine 2.5 mg, losartan 100 mg, HCTZ 12.5 mg daily. - Dementia - continue donepezil 5 mg daily - Blindness - due to Glaucoma, cataract. No acute issues. Full code. Warfarin on hold. James Godwin DO Jan 05, 2017 14:01
[2017-01-05] MEDS: SODIUM CHLORID 0.9% 500 ML IV SCH (15:10)
[2017-01-05] MEDS: ACETAMINOPHEN/HYDROcodone 325 MG/7.5 MG TAB PO PRN (15:36)
[2017-01-05] MEDS: WARFARIN SOD 6 MG TAB PO SCH (15:36)
[2017-01-05 19:35] VITALS: BP 106/54; PULSE 75; RESP 16; TEMP 97.1; O2SAT 96
[2017-01-05] MEDS: LACTATED RINGER'S 1000 ML IV SCH (22:30)
[2017-01-06] VITALS (7 sets, daily range): BP systolic 98–120; BP diastolic 43–67; PULSE 68–86; RESP 17–18; TEMP 95.8–99; O2SAT 93–96
[2017-01-06] MEDS: ceFAZolin 2 GM PREMIX 50 ML IV SCH (01:00)
[2017-01-06] MEDS: ACETAMINOPHEN/HYDROcodone 325 MG/7.5 MG TAB PO PRN ×2 (01:06→07:09)
--- NOTE | 2017-01-06 06:38 | PD.ORT.PN ---
Subjective Subjective Remarks POD 1 s/p Right hip bipolar hemiarthroplasty doing well. pain controlled. nurses report out of bed and in chair yesterday Objective Vitals Vital Signs Date Time Temp Pulse Resp B/P Pulse Ox O2 Delivery O2 Flow Rate FiO2 01/06/17 04:00 97.7 68 18 110/51 95 01/06/17 00:15 96.9 84 18 118/56 95 01/05/17 21:37 Nasal Cannula 2.00 01/05/17 19:35 97.1 75 16 106/54 96 01/05/17 18:34 Nasal Cannula 2.00 01/05/17 16:36 20 01/05/17 13:25 92 Nasal Cannula 2.00 01/05/17 12:50 98.1 70 16 118/59 98 01/05/17 10:50 98.0 73 16 112/54 97 01/05/17 10:00 97.9 67 14 111/58 97 Nasal Cannula 2 01/05/17 09:45 81 14 112/39 95 Nasal Cannula 2 01/05/17 09:30 66 14 106/55 97 Nasal Cannula 2 01/05/17 09:15 65 14 119/57 96 Nasal Cannula 2 01/05/17 09:00 64 15 115/60 97 Nasal Cannula 2 01/05/17 08:45 60 15 106/66 98 Nasal Cannula 2 01/05/17 08:30 60 15 104/54 98 Nasal Cannula 2 01/05/17 08:17 98.2 64 12 107/48 98 Simple Mask 8 I/O 01/05/17 01/05/17 01/05/17 01/06/17 01/06/17 01/06/17 07:00 15:00 23:00 07:00 15:00 23:00 Intake Total 1150 ml 240 ml Output Total 325 ml 600 ml Balance 825 ml -360 ml Intake Oral 0 ml 240 ml IV Total 150 ml Other 1000 ml Output Urine Total 250 ml 600 ml Drainage Total 25 ml 0 ml Estimated Blood Loss 50 ml # Bowel Movements 0 Result Diagram: 01/04/17 0433 01/04/17 0433 Imaging Last 24 hours Impressions Hip and Pelvis X-Ray 01/03/17 4186 Signed Impressions: Service Date/Time: Tuesday, January 03, 2017 14:32 - CONCLUSION: Subcapital fracture right femoral neck. Earnest Estrella MD FACR Chest X-Ray 01/03/17 1336 Signed Impressions: Service Date/Time: Tuesday, January 03, 2017 14:32 - CONCLUSION: 1. Negative chest. 2. There is no pneumothorax. I do not see a displaced fracture. Earnest Estrella MD FACR Objective Remarks RLE: dressings clean and dry. intact. NVI. +drain. + knee brace Assessment & Plan Problem List: (1) Fracture of femoral neck, right (2) Deep vein blood clot of left lower extremity (3) Neurocognitive disorder (4) HLD (hyperlipidemia) (5) HTN (hypertension) (6) CAD (coronary artery disease) (7) Weakness Assessment and Plan 1) Right Femoral Neck Fx s/p hemiarthroplasty - POD 1 -WBAT -posterior hip precautions -knee brace while in bed -CM for rehab placement -coumadin management by medical team -bridge with lovenox -plan for Dc to rehab tuesday -f/u with [facility] or [facility] in 2 weeks Thanh Magana Jan 06, 2017 06:38
[2017-01-06 06:59] LABS: HEMATOCRIT 29.2 % (35.0-46.0); REVIEW FLAG FINAL
[2017-01-06 07:04] LABS: PROTHROMBIN TIME - PATIENT 11.3 SEC (9.8-11.6)
[2017-01-06] MEDS: ENOXAPARIN SODIUM 30 MG/0.3 ML SYRINGE SQ SCH (07:09)
[2017-01-06] MEDS: METOPROLOL TARTRATE 25 MG TAB PO SCH ×2 (08:24→21:37)
[2017-01-06] MEDS: DONEPEZIL HCL 5 MG TAB PO SCH (08:24)
[2017-01-06] MEDS: OXYBUTYNIN CHLORIDE 5 MG TAB PO SCH (08:24)
[2017-01-06] MEDS: HYDROCHLOROTHIAZIDE 12.5 MG CAP PO SCH (08:41)
[2017-01-06] MEDS: LOSARTAN 50 MG TAB PO SCH (08:41)
[2017-01-06] MEDS: SODIUM CHLORIDE 0.9% FLUSH 5 ML FLUSH IVF SCH ×2 (08:41→21:00)
[2017-01-06] MEDS: CHOLECALCIFEROL (VIT D3) 5000 UNIT CAP PO SCH (08:42)
[2017-01-06] MEDS: amLODIPine BESYLATE 5 MG TAB PO SCH (08:42)
[2017-01-06] MEDS: SENNOSIDES SYRUP 8.8 MG/5 ML CUP PO SCH (12:00)
--- NOTE | 2017-01-06 14:25 | HHI.PR ---
Subjective Remarks Follow up for right hip fracture s/p right hip hemiarthroplasty. Ms. Hayes is doing well. No acute concerns. Objective Vitals Vital Signs Date Time Temp Pulse Resp B/P Pulse Ox O2 Delivery O2 Flow Rate FiO2 01/06/17 12:01 95.8 75 17 111/62 96 01/06/17 11:54 93 Nasal Cannula 2.00 01/06/17 08:00 99.0 77 18 120/48 93 01/06/17 04:00 97.7 68 18 110/51 95 01/06/17 00:15 96.9 84 18 118/56 95 01/05/17 21:37 Nasal Cannula 2.00 01/05/17 19:35 97.1 75 16 106/54 96 01/05/17 18:34 Nasal Cannula 2.00 01/05/17 16:36 20 I/O 01/05/17 01/05/17 01/05/17 01/06/17 01/06/17 01/06/17 07:00 15:00 23:00 07:00 15:00 23:00 Intake Total 1150 ml 240 ml 60 ml Output Total 325 ml 600 ml 240 ml Balance 825 ml -360 ml -180 ml Intake Oral 0 ml 240 ml 60 ml IV Total 150 ml Other 1000 ml Output Urine Total 250 ml 600 ml 240 ml Drainage Total 25 ml 0 ml 0 ml Estimated Blood Loss 50 ml # Bowel Movements 0 0 Result Diagram: 01/06/17 0629 01/04/17 0433 Imaging Last Impressions Hip and Pelvis X-Ray 01/05/17 0801 Signed Impressions: Service Date/Time: Thursday, January 05, 2017 09:40 - CONCLUSION: 1. Status post right hip replacement with prosthesis in good position. Zane Hardy MD Chest X-Ray 01/03/17 1336 Signed Impressions: Service Date/Time: Tuesday, January 03, 2017 14:32 - CONCLUSION: 1. Negative chest. 2. There is no pneumothorax. I do not see a displaced fracture. Earnest Estrella MD FACR Objective Remarks GENERAL: Alert but sleepy, sitting in her chair. NAD. SKIN: Warm and dry. HEAD: Normocephalic. EYES: No scleral icterus. No injection or drainage. NECK: Supple, trachea midline. No JVD or lymphadenopathy. CARDIOVASCULAR: Regular rate and rhythm without murmurs, gallops, or rubs. RESPIRATORY: Breath sounds equal bilaterally. No accessory muscle use. GASTROINTESTINAL: Abdomen soft, non-tender, nondistended. MUSCULOSKELETAL: No cyanosis, or edema. s/p right hip hemiarthroplasty. Procedures Right hip hemiarthroplasty. 01/05/2017. A/P Problem List: (1) Fracture of femoral neck, right ICD Code: S72.001A Status: Acute (2) Atrial fibrillation ICD Code: I48.91 Status: Acute (3) History of DVT (deep vein thrombosis) ICD Code: Z86.718 Status: Acute (4) HTN (hypertension) ICD Code: I10 Status: Chronic Assessment and Plan Ms. Hayes is a pleasant 86-year-old legally blind female with a history of atrial fibrillation and DVT who presents to the emergency department on 2016 due to mechanical fall from her bed. X-ray studies show right femoral neck fracture. - Right femoral neck fracture - s/p right hip hemiarthroplasty. - Lovenox 30mg Q24hrs starting 01/06/2017. - Continue pain medications - Tylenol, Wedron, Morphine PRN. - Dulcolax supp, Milk of Mag for Bowel movement. - Atrial fibrillation - History of DVT - continue metoprolol 25 mg twice a day. - Warfarin 6mg Qday - restarted on 01/05/2017. - Consult Warfarin Pharmacy. - Hypertension - continue amlodipine 2.5 mg, losartan 100 mg, HCTZ 12.5 mg daily. - Dementia - continue donepezil 5 mg daily - Blindness - due to Glaucoma, cataract. No acute issues. Full code. Warfarin. Discharge plan: Likely discharge to SNF on 01/08/2017. James Godwin DO Jan 06, 2017 2:25 pm
[2017-01-06] MEDS: WARFARIN SOD 6 MG TAB PO SCH (16:00)
[2017-01-06] MEDS: ACETAMINOPHEN/HYDROcodone 325 MG/5 MG TAB PO PRN (18:45)
[2017-01-07] VITALS (7 sets, daily range): BP systolic 112–142; BP diastolic 56–64; PULSE 70–95; RESP 17–22; TEMP 96.3–97.9; O2SAT 93–98
[2017-01-07] MEDS: ACETAMINOPHEN/HYDROcodone 325 MG/5 MG TAB PO PRN ×3 (01:50→19:46)
[2017-01-07 06:37] LABS: INTERNATIONAL NORMALIZED RATIO 1.1 RATIO; PROTHROMBIN TIME - PATIENT 12.7 SEC (9.8-11.6)
[2017-01-07] MEDS: ENOXAPARIN SODIUM 30 MG/0.3 ML SYRINGE SQ SCH (06:46)
[2017-01-07] MEDS ORDERED: ERGO1CAP10 PO (07:10)
[2017-01-07] MEDS ORDERED: VITA200012 PO (07:10)
--- NOTE | 2017-01-07 07:32 | PD.ORT.PN ---
Subjective Subjective Remarks Resting comfortably with no new complaints Objective Vitals Vital Signs Date Time Temp Pulse Resp B/P Pulse Ox O2 Delivery O2 Flow Rate FiO2 01/07/17 00:00 96.3 71 18 122/56 98 01/06/17 21:22 Nasal Cannula 1.50 01/06/17 20:00 98.4 86 18 114/53 95 01/06/17 16:00 97.2 75 18 120/67 96 01/06/17 12:01 95.8 75 17 111/62 96 01/06/17 11:54 93 Nasal Cannula 2.00 01/06/17 08:00 99.0 77 18 120/48 93 I/O 01/06/17 01/06/17 01/06/17 01/07/17 01/07/17 01/07/17 07:00 15:00 23:00 07:00 15:00 23:00 Intake Total 60 ml 240 ml 360 ml 240 ml Output Total 240 ml 615 ml 5 ml 25 ml Balance -180 ml -375 ml 355 ml 215 ml Intake Oral 60 ml 240 ml 360 ml 240 ml Output Urine Total 240 ml 600 ml Drainage Total 0 ml 15 ml 5 ml 25 ml # Voids 0 2 # Bowel Movements 0 0 0 Result Diagram: 01/06/17 0629 01/04/17 0433 Other Results Laboratory Tests Test 01/07/17 06:10 Prothrombin Time 12.7 SEC (9.8-11.6) Prothromb Time International 1.1 RATIO Ratio Imaging Last 24 hours Impressions Hip and Pelvis X-Ray 01/03/171335 Signed Impressions: Service Date/Time: Tuesday, January 03, 2017 14:32 - CONCLUSION: Subcapital fracture right femoral neck. Earnest Estrella MD FACR Chest X-Ray 01/03/171335 Signed Impressions: Service Date/Time: Tuesday, January 03, 2017 14:32 - CONCLUSION: 1. Negative chest. 2. There is no pneumothorax. I do not see a displaced fracture. Earnest Estrella MD FACR Objective Remarks RLE: dressings clean and dry. intact. NVI. + knee brace Assessment & Plan Problem List: (1) Fracture of femoral neck, right (2) Deep vein blood clot of left lower extremity (3) Neurocognitive disorder (4) HLD (hyperlipidemia) (5) HTN (hypertension) (6) CAD (coronary artery disease) (7) Weakness Assessment and Plan 1) Right Femoral Neck Fx s/p hemiarthroplasty - POD 2 -WBAT -posterior hip precautions -knee brace while in bed -CM for rehab placement -coumadin management by medical team -bridge with lovenox -plan for Dc to rehab tuesday or when cleared by medical -f/u with [facility] or [facility] in 2 weeks ALEJANDRA RODRIGUEZ PA-C Jan 07, 2017 07:32
[2017-01-07] MEDS: OXYBUTYNIN CHLORIDE 5 MG TAB PO SCH (09:00)
[2017-01-07] MEDS: METOPROLOL TARTRATE 25 MG TAB PO SCH ×2 (09:16→19:46)
[2017-01-07] MEDS: CHOLECALCIFEROL (VIT D3) 5000 UNIT CAP PO SCH (09:16)
[2017-01-07] MEDS: SENNOSIDES SYRUP 8.8 MG/5 ML CUP PO SCH (09:16)
[2017-01-07] MEDS: amLODIPine BESYLATE 5 MG TAB PO SCH (09:16)
[2017-01-07] MEDS: LOSARTAN 50 MG TAB PO SCH (09:16)
[2017-01-07] MEDS: DONEPEZIL HCL 5 MG TAB PO SCH (09:17)
[2017-01-07] MEDS: HYDROCHLOROTHIAZIDE 12.5 MG CAP PO SCH (09:17)
[2017-01-07] MEDS: SODIUM CHLORIDE 0.9% FLUSH 5 ML FLUSH IVF SCH ×2 (09:18→19:53)
--- NOTE | 2017-01-07 12:04 | HHI.PR ---
Subjective Remarks Patient reports that she is feeling tired today. Discussed with daughter at bedside. She wants her to return at the [facility] and have physical therapy there instead of a residential facility. Objective Vitals Vital Signs Date Time Temp Pulse Resp B/P Pulse Ox O2 Delivery O2 Flow Rate FiO2 01/07/17 08:00 97.9 70 17 123/58 96 01/07/17 00:00 96.3 71 18 122/56 98 01/06/17 21:22 Nasal Cannula 1.50 01/06/17 20:00 98.4 86 18 114/53 95 01/06/17 16:00 97.2 75 18 120/67 96 I/O 01/06/17 01/06/17 01/06/17 01/07/17 01/07/17 01/07/17 06:59 14:59 22:59 06:59 14:59 22:59 Intake Total 60 ml 240 ml 360 ml 240 ml Output Total 240 ml 615 ml 5 ml 25 ml Balance -180 ml -375 ml 355 ml 215 ml Intake Oral 60 ml 240 ml 360 ml 240 ml Output Urine Total 240 ml 600 ml Drainage Total 0 ml 15 ml 5 ml 25 ml # Voids 0 2 # Bowel Movements 0 0 0 Result Diagram: 01/06/17 0629 01/04/17 0433 Imaging Last Impressions Hip and Pelvis X-Ray 01/05/17 0801 Signed Impressions: Service Date/Time: Thursday, January 05, 2017 09:40 - CONCLUSION: 1. Status post right hip replacement with prosthesis in good position. Zane Hardy MD Chest X-Ray 01/03/17 1336 Signed Impressions: Service Date/Time: Tuesday, January 03, 2017 14:32 - CONCLUSION: 1. Negative chest. 2. There is no pneumothorax. I do not see a displaced fracture. Earnest Estrella MD FACR Objective Remarks GENERAL: Patient is blind. In no apparent distress. CARDIOVASCULAR: Normal rate and regular rhythm without murmurs, gallops, or rubs. RESPIRATORY: Good respiratory efforts. Breath sounds equal and clear to auscultation bilaterally. GASTROINTESTINAL: Abdomen soft, non-tender, non-distended. Normal active bowel sounds MUSCULOSKELETAL: Right knee splinted. Neurovascularly intact distally at the toes. NEURO: Alert. Normal speech PSYCH: Calm. Procedures Right hemiarthroplasty for femoral neck fracture. 01/05/2017. A/P Problem List: (1) Fracture of femoral neck, right ICD Code: S72.001A Status: Acute (2) Atrial fibrillation ICD Code: I48.91 Status: Acute (3) History of DVT (deep vein thrombosis) ICD Code: Z86.718 Status: Acute (4) HTN (hypertension) ICD Code: I10 Status: Chronic Assessment and Plan 86-year-old legally blind female with a history of atrial fibrillation and DVT who presents to the emergency department on 01/03/2017 due to mechanical fall from her bed. X-ray studies show right femoral neck fracture. - Right femoral neck fracture - s/p right hemiarthroplasty. - Lovenox 30mg Q24hrs starting 01/06/2017. - Continue pain medications - Tylenol, Douglas, Morphine PRN. - Dulcolax supp, Milk of Mag for Bowel movement. - Atrial fibrillation - History of DVT - continue metoprolol 25 mg twice a day. - Warfarin 6mg Qday - restarted on 01/05/2017. -Pharmacy following. - Hypertension - continue amlodipine 2.5 mg, losartan 100 mg, HCTZ 12.5 mg daily. - Dementia - continue donepezil 5 mg daily - Blindness - due to Glaucoma, cataract. No acute issues. Full code. Warfarin. Discharge Planning Plan for DC tomorrow to [facility] is deemed safe by physical therapy and okay with orthopedics. Tana Slade MD Jan 07, 2017 12:04
[2017-01-07] MEDS: WARFARIN SOD 6 MG TAB PO SCH (17:05)
[2017-01-07] MEDS: LACTATED RINGER'S 1000 ML IV SCH (20:39)
[2017-01-08] VITALS: BP 128/63; PULSE 83; RESP 16; TEMP 96.5; O2SAT 96
[2017-01-08] MEDS: ACETAMINOPHEN/HYDROcodone 325 MG/5 MG TAB PO PRN ×2 (00:21→09:06)
[2017-01-08] MEDS: ENOXAPARIN SODIUM 30 MG/0.3 ML SYRINGE SQ SCH (06:18)
[2017-01-08 06:56] LABS: INTERNATIONAL NORMALIZED RATIO 1.5 RATIO; PROTHROMBIN TIME - PATIENT 16.5 SEC (9.8-11.6)
[2017-01-08 08:00] VITALS: BP 156/70; PULSE 90; RESP 21; TEMP 98.1; O2SAT 96
[2017-01-08] MEDS: HYDROCHLOROTHIAZIDE 12.5 MG CAP PO SCH (08:32)
[2017-01-08] MEDS: SENNOSIDES SYRUP 8.8 MG/5 ML CUP PO SCH (08:32)
[2017-01-08] MEDS: amLODIPine BESYLATE 5 MG TAB PO SCH (08:35)
[2017-01-08] MEDS: DONEPEZIL HCL 5 MG TAB PO SCH (08:35)
[2017-01-08] MEDS: METOPROLOL TARTRATE 25 MG TAB PO SCH ×2 (08:35→20:41)
[2017-01-08] MEDS: OXYBUTYNIN CHLORIDE 5 MG TAB PO SCH (08:35)
[2017-01-08] MEDS: LOSARTAN 50 MG TAB PO SCH (08:35)
[2017-01-08] MEDS: CHOLECALCIFEROL (VIT D3) 5000 UNIT CAP PO SCH (08:35)
[2017-01-08] MEDS: SODIUM CHLORIDE 0.9% FLUSH 5 ML FLUSH IVF SCH ×2 (08:36→20:42)
[2017-01-08 10:14] VITALS: O2SAT 91
--- NOTE | 2017-01-08 10:23 | PD.ORT.PN ---
Subjective Post Op Day #: 3 Subjective Remarks Patient sitting upright in chair, accompanied by her daughter. Pt is blind but hears well. Complaints of minimal right hip pain. No new complaints noted. Objective Vitals Vital Signs Date Time Temp Pulse Resp B/P Pulse Ox O2 Delivery O2 Flow Rate FiO2 01/08/17 08:00 98.1 90 21 156/70 96 01/08/17 00:00 96.5 83 16 128/63 96 01/07/17 20:05 97.7 95 20 142/62 94 01/07/17 18:13 95 21 01/07/17 16:00 97.9 86 22 139/64 95 01/07/17 14:23 93 21 01/07/17 12:00 96.5 82 17 112/56 96 I/O 01/07/17 01/07/17 01/07/17 01/08/17 01/08/17 01/08/17 07:00 15:00 23:00 07:00 15:00 23:00 Intake Total 240 ml 480 ml 240 ml 240 ml Output Total 25 ml 300 ml Balance 215 ml 180 ml 240 ml 240 ml Intake Oral 240 ml 480 ml 240 ml 240 ml Output Urine Total 300 ml Drainage Total 25 ml # Voids 2 1 1 2 # Bowel Movements 0 1 2 Result Diagram: 01/06/17 0629 01/04/17 0433 Other Results Laboratory Tests Test 01/08/17 05:28 Prothrombin Time 16.5 SEC (9.8-11.6) Prothromb Time International 1.5 RATIO Ratio Imaging Last Impressions Hip and Pelvis X-Ray 01/05/17 0801 Signed Impressions: Service Date/Time: Thursday, January 05, 2017 09:40 - CONCLUSION: 1. Status post right hip replacement with prosthesis in good position. Zane Hardy MD Chest X-Ray 01/03/17 1336 Signed Impressions: Service Date/Time: Tuesday, January 03, 2017 14:32 - CONCLUSION: 1. Negative chest. 2. There is no pneumothorax. I do not see a displaced fracture. Earnest Estrella MD FACR Procedures Right Femoral Neck Fx s/p hemiarthroplasty Objective Remarks RLE: dressings clean and dry. intact. NVI. Assessment & Plan Ortho Post Op Day #: 3 Problem List: (1) Fracture of femoral neck, right (2) Deep vein blood clot of left lower extremity (3) Neurocognitive disorder (4) HLD (hyperlipidemia) (5) HTN (hypertension) (6) CAD (coronary artery disease) (7) Weakness Assessment and Plan 1) Right Femoral Neck Fx s/p hemiarthroplasty - POD 3 -WBAT -posterior hip precautions -knee brace while in bed - for rehab placement, daughter admits trying to get placed in her [facility] -coumadin management by medical team -bridge with lovemaggiex -plan for Dc to rehab/ [facility] today or when cleared by medical -f/u with [facility] or [facility] in 2 weeks Shabana Archer Jan 08, 2017 10:23
--- NOTE | 2017-01-08 11:09 | HHI.PR ---
Subjective Remarks Patient has no major complains denies cp/sob denies fevers or chills stable vital signs Objective Vitals Vital Signs Date Time Temp Pulse Resp B/P Pulse Ox O2 Delivery O2 Flow Rate FiO2 01/08/17 08:00 98.1 90 21 156/70 96 01/08/17 00:00 96.5 83 16 128/63 96 01/07/17 20:05 97.7 95 20 142/62 94 01/07/17 18:13 95 21 01/07/17 16:00 97.9 86 22 139/64 95 01/07/17 14:23 93 21 01/07/17 12:00 96.5 82 17 112/56 96 I/O 01/07/17 01/07/17 01/07/17 01/08/17 01/08/17 01/08/17 07:00 15:00 23:00 07:00 15:00 23:00 Intake Total 240 ml 480 ml 240 ml 240 ml Output Total 25 ml 300 ml Balance 215 ml 180 ml 240 ml 240 ml Intake Oral 240 ml 480 ml 240 ml 240 ml Output Urine Total 300 ml Drainage Total 25 ml # Voids 2 1 1 2 # Bowel Movements 0 1 2 Result Diagram: 01/06/17 0629 01/04/17 0433 Imaging Last Impressions Hip and Pelvis X-Ray 01/05/17 0801 Signed Impressions: Service Date/Time: Thursday, January 05, 2017 09:40 - CONCLUSION: 1. Status post right hip replacement with prosthesis in good position. Zane Hardy MD Chest X-Ray 01/03/17 1336 Signed Impressions: Service Date/Time: Tuesday, January 03, 2017 14:32 - CONCLUSION: 1. Negative chest. 2. There is no pneumothorax. I do not see a displaced fracture. Earnest Estrella MD FACR Objective Remarks GENERAL: Patient is blind. In no apparent distress. CARDIOVASCULAR: Normal rate and regular rhythm without murmurs, gallops, or rubs. RESPIRATORY: Good respiratory efforts. Breath sounds equal and clear to auscultation bilaterally. GASTROINTESTINAL: Abdomen soft, non-tender, non-distended. Normal active bowel sounds MUSCULOSKELETAL: Right knee splinted. Neurovascularly intact distally at the toes. NEURO: Alert. Normal speech PSYCH: Calm. Procedures Right hemiarthroplasty for femoral neck fracture. 01/05/2017. Medications and IVs Current Medications Medications (Trade) Dose Ordered Sig/Antonio Route Start Time Stop Time Status Last Admin (Tylenol) 650 mg Q4H PRN PO 01/03/17 15:30 01/06/17 14:13 (Zofran Inj) 4 mg Q6H PRN IVP 01/03/17 15:30 (Dulcolax Supp) 10 mg DAILY PRN [place] 01/03/17 15:30 (Milk Of Magnesia Liq) 30 ml Q12H PRN PO 01/03/17 15:30 (Narcan Inj) 0.4 mg UNSCH PRN IV 01/03/17 15:30 (Lopressor) 25 mg BID PO 01/03/17 21:00 01/08/17 08:35 (Norvasc) 2.5 mg DAILY PO 01/04/17 09:00 01/08/17 08:35 (Aricept) 5 mg DAILY PO 01/04/17 09:00 01/08/17 08:35 (Ditropan) 10 mg DAILY PO 01/04/17 09:00 01/06/17 08:24 (Pill Splitter) 1 ea UNSCH PRN OTHER 01/04/17 09:00 (Cozaar) 100 mg DAILY PO 01/04/17 09:00 01/08/17 08:35 Hydrochlorothiazide 12.5 mg 12.5 mg DAILY PO 01/04/17 09:00 01/08/17 08:32 (Lr 1000 ml Inj) 1,000 ml @ 30 mls/hr Q24H IV 01/04/17 22:30 01/04/17 22:30 (NS Flush) 2 ml UNSCH PRN IVF 01/05/17 08:15 (NS Flush) 2 ml BID IVF 01/05/17 09:00 01/08/17 08:36 (Lovenox Inj) 30 mg Q24H SQ 01/06/17 07:00 01/08/17 06:18 (Morphine Inj) 3 mg Q3H PRN IV PUSH 01/05/17 08:15 (Vitamin D3) 5,000 units DAILY PO 01/05/17 09:00 01/08/17 08:35 (Coumadin) 6 mg DAILY@16 PO 01/05/17 16:00 01/07/17 17:05 (Crane 5-325 Mg) 1 tab Q4H PRN PO 01/06/17 12:00 01/08/17 09:06 Sennosides 8.8 mg 8.8 mg DAILY PO 01/06/17 12:00 01/09/17 11:59 01/08/17 08:32 (Coumadin Consult Pharmacy) 0 ml @ 0 mls/hr UNSCH OTHER 01/06/17 14:30 Urinary Catheter: No Vascular Central Line Catheter: No A/P Problem List: (1) Fracture of femoral neck, right ICD Code: S72.001A Status: Acute Plan: sp Right hemiarthroplasty Pain controlled - continue Tylenol, Crane and morphine PRN Continue Lovenox SQ for prophylaxis - started 01/06/17 Continue Bowel Regime to prevent constipation Continue management as per orthopedic surgery - POD 3 -WBAT -posterior hip precautions -knee brace while in bed - for rehab placement, daughter admits trying to get placed in her NURSING HOME -coumadin management by medical team -bridge with lovenox. Cleared by orthopedic surgery to be discharged once medically stable. (2) Atrial fibrillation ICD Code: I48.91 Status: Acute Plan: Now on sinus rythm - likely Paroxysmal. Continue metoprolol at same dose. Continue Warfarin - INR 1.5 today. continue to monitor PT/INR (3) History of DVT (deep vein thrombosis) ICD Code: Z86.718 Status: Acute Plan: Continue warfarin - restarted on 01/05/2017 INR trending up - 1.5. Continue to monitor PT/INR. (4) HTN (hypertension) ICD Code: I10 Status: Chronic Plan: Seems stable. continue amlodipine 2.5 mg daily, losartan 100 mg daily, HCTZ 12.5 mg daily. (5) Urinary retention ICD Code: R33.9 Status: Acute Plan: Abdominal pain on hypogastric region - distended bladder on palpation - Requested RN please to obtain a bladder scan - if retention then urinary catheter will be inserted. start voiding trial in am. Assessment and Plan Will add PPI for Gi prophylaxis DVT prophylaxis - Lovenox bridge to coumadin. Discharge Planning DVT prophylaxis: Lovenox SQ and oral Coumadin. Problem Qualifiers (1) Fracture of femoral neck, right: Qualified Code: S72.001D - Closed fracture of neck of right femur with routine healing, subsequent encounter (2) Atrial fibrillation: Qualified Code: I48.0 - Paroxysmal atrial fibrillation Adan Wiley MD Jan 08, 2017 11:09
[2017-01-08 12:00] VITALS: BP 116/59; PULSE 81; RESP 17; TEMP 96.6; O2SAT 94
[2017-01-08 16:00] VITALS: BP 115/56; PULSE 100; RESP 16; TEMP 99; O2SAT 94
[2017-01-08] MEDS: WARFARIN SOD 6 MG TAB PO SCH (16:52)
[2017-01-08] MEDS: LACTATED RINGER'S 1000 ML IV SCH (20:42)
[2017-01-08 20:50] VITALS: BP 117/62; PULSE 98; RESP 16; TEMP 98.9; O2SAT 95
[2017-01-09] VITALS (8 sets, daily range): BP systolic 101–133; BP diastolic 48–66; PULSE 83–100; RESP 18–24; TEMP 95.8–98.2; O2SAT 91–96
[2017-01-09] MEDS: ACETAMINOPHEN/HYDROcodone 325 MG/5 MG TAB PO PRN (03:27)
[2017-01-09] MEDS: ENOXAPARIN SODIUM 30 MG/0.3 ML SYRINGE SQ SCH (05:59)
[2017-01-09 07:53] LABS: INTERNATIONAL NORMALIZED RATIO 2.7 RATIO; PROTHROMBIN TIME - PATIENT 31.7 SEC (9.8-11.6)
--- NOTE | 2017-01-09 08:55 | PD.ORT.PN ---
Subjective Post Op Day #: 4 Subjective Remarks Patient laying in bed, sleeping but arousable. Pt is blind but hears well. Complaints of minimal right hip pain. No new complaints noted. Objective Vitals Vital Signs Date Time Temp Pulse Resp B/P Pulse Ox O2 Delivery O2 Flow Rate FiO2 01/09/17 03:13 89 24 133/63 95 01/09/17 00:00 95.8 83 20 127/57 91 01/08/17 20:50 98.9 98 16 117/62 95 01/08/17 16:00 99.0 100 16 115/56 94 01/08/17 12:00 96.6 81 17 116/59 94 01/08/17 10:14 91 21 I/O 01/08/17 01/08/17 01/08/17 01/09/17 01/09/17 01/09/17 07:00 15:00 23:00 07:00 15:00 23:00 Intake Total 240 ml 480 ml 240 ml 150 ml Output Total 500 ml 275 ml 325 ml Balance 240 ml -20 ml -35 ml -175 ml Intake Oral 240 ml 480 ml 240 ml 150 ml Output Urine Total 500 ml 275 ml 325 ml Bladder Scan Volume Amount 675 ml # Voids 2 # Bowel Movements 2 0 1 Result Diagram: 01/06/17 0629 Other Results Laboratory Tests Test 01/09/17 07:23 Prothrombin Time 31.7 SEC (9.8-11.6) Prothromb Time International 2.7 RATIO Ratio Imaging Last Impressions Hip and Pelvis X-Ray 01/05/17 0801 Signed Impressions: Service Date/Time: Thursday, January 05, 2017 09:40 - CONCLUSION: 1. Status post right hip replacement with prosthesis in good position. Zane Hardy MD Chest X-Ray 01/03/17 1336 Signed Impressions: Service Date/Time: Tuesday, January 03, 2017 14:32 - CONCLUSION: 1. Negative chest. 2. There is no pneumothorax. I do not see a displaced fracture. Earnest Estrella MD FACR Procedures Right Femoral Neck Fx s/p hemiarthroplasty Objective Remarks RLE: dressings clean and dry. intact. NVI. symmetric lower extremity edema, 1+ Assessment & Plan Ortho Post Op Day #: 4 Problem List: (1) Fracture of femoral neck, right (2) Deep vein blood clot of left lower extremity (3) Neurocognitive disorder (4) HLD (hyperlipidemia) (5) HTN (hypertension) (6) CAD (coronary artery disease) (7) Weakness Assessment and Plan 1) Right Femoral Neck Fx s/p hemiarthroplasty - POD 4 -WBAT -posterior hip precautions -knee brace while in bed - for rehab placement, daughter admits trying to get placed in her [facility] -coumadin management by medical team -bridge with lovemaggiex -plan for Dc to rehab/ [facility] today or when cleared by medical -f/u with [facility] or [facility] in 2 weeks Shabana Archer Jan 09, 2017 08:55
[2017-01-09] MEDS: CHOLECALCIFEROL (VIT D3) 5000 UNIT CAP PO SCH (09:00)
[2017-01-09] MEDS: OXYBUTYNIN CHLORIDE 5 MG TAB PO SCH (09:00)
[2017-01-09] MEDS: SENNOSIDES SYRUP 8.8 MG/5 ML CUP PO SCH (09:07)
[2017-01-09] MEDS: SODIUM CHLORIDE 0.9% FLUSH 5 ML FLUSH IVF SCH ×2 (09:08→19:58)
[2017-01-09] MEDS: DONEPEZIL HCL 5 MG TAB PO SCH (09:08)
[2017-01-09] MEDS: METOPROLOL TARTRATE 25 MG TAB PO SCH ×2 (09:08→19:58)
[2017-01-09] MEDS: LOSARTAN 50 MG TAB PO SCH (09:08)
[2017-01-09] MEDS: amLODIPine BESYLATE 5 MG TAB PO SCH (09:08)
[2017-01-09] MEDS: HYDROCHLOROTHIAZIDE 12.5 MG CAP PO SCH (09:08)
--- NOTE | 2017-01-09 18:28 | HHI.PR ---
Subjective Remarks As per RN patient has been awake son is at bedside, states she is more herself pain controlled, patient not requesting pain meds with much frequency Patient denies any pain, denies chest pain or shortness of breath. Objective Vitals Vital Signs Date Time Temp Pulse Resp B/P Pulse Ox O2 Delivery O2 Flow Rate FiO2 01/09/17 16:00 97.6 98 18 117/66 96 01/09/17 13:49 95 01/09/17 12:00 97.1 98 18 101/52 95 01/09/17 08:00 97.5 92 18 125/61 95 01/09/17 03:13 89 24 133/63 95 01/09/17 00:00 95.8 83 20 127/57 91 01/08/17 20:50 98.9 98 16 117/62 95 I/O 01/08/17 01/08/17 01/08/17 01/09/17 01/09/17 01/09/17 07:00 15:00 23:00 07:00 15:00 23:00 Intake Total 240 ml 480 ml 240 ml 150 ml 360 ml Output Total 500 ml 275 ml 325 ml 350 ml Balance 240 ml -20 ml -35 ml -175 ml 10 ml Intake Oral 240 ml 480 ml 240 ml 150 ml 360 ml Output Urine Total 500 ml 275 ml 325 ml 350 ml Bladder Scan Volume Amount 675 ml # Voids 2 # Bowel Movements 2 0 1 1 Result Diagram: 01/06/17 0629 Imaging Last Impressions Hip and Pelvis X-Ray 01/05/17 0801 Signed Impressions: Service Date/Time: Thursday, January 05, 2017 09:40 - CONCLUSION: 1. Status post right hip replacement with prosthesis in good position. Zane Hardy MD Chest X-Ray 01/03/17 1336 Signed Impressions: Service Date/Time: Tuesday, January 03, 2017 14:32 - CONCLUSION: 1. Negative chest. 2. There is no pneumothorax. I do not see a displaced fracture. Earnest Estrella MD FACR Objective Remarks GENERAL: Patient is blind. In no apparent distress. CARDIOVASCULAR: Normal rate and regular rhythm without murmurs, gallops, or rubs. RESPIRATORY: Good respiratory efforts. Breath sounds equal and clear to auscultation bilaterally. GASTROINTESTINAL: Abdomen soft, non-tender, non-distended. Normal active bowel sounds MUSCULOSKELETAL: Right knee splinted. Neurovascularly intact distally at the toes. NEURO: Alert. Normal speech PSYCH: Calm. Procedures Right hemiarthroplasty for femoral neck fracture. 01/05/2017. Medications and IVs Current Medications Medications (Trade) Dose Ordered Sig/Antonio Route Start Time Stop Time Status Last Admin (Tylenol) 650 mg Q4H PRN PO 01/03/17 15:30 01/06/17 14:13 (Zofran Inj) 4 mg Q6H PRN IVP 01/03/17 15:30 (Dulcolax Supp) 10 mg DAILY PRN IN 01/03/17 15:30 (Milk Of Magnesia Liq) 30 ml Q12H PRN PO 01/03/17 15:30 (Narcan Inj) 0.4 mg UNSCH PRN IV 01/03/17 15:30 (Lopressor) 25 mg BID PO 01/03/17 21:00 01/09/17 09:08 (Norvasc) 2.5 mg DAILY PO 01/04/17 09:00 01/09/17 09:08 (Aricept) 5 mg DAILY PO 01/04/17 09:00 01/09/17 09:08 (Ditropan) 10 mg DAILY PO 01/04/17 09:00 01/06/17 08:24 (Pill Splitter) 1 ea UNSCH PRN OTHER 01/04/17 09:00 (Cozaar) 100 mg DAILY PO 01/04/17 09:00 01/09/17 09:08 Hydrochlorothiazide 12.5 mg 12.5 mg DAILY PO 01/04/17 09:00 01/09/17 09:08 (Lr 1000 ml Inj) 1,000 ml @ 30 mls/hr Q24H IV 01/04/17 22:30 01/04/17 22:30 (NS Flush) 2 ml UNSCH PRN IVF 01/05/17 08:15 (NS Flush) 2 ml BID IVF 01/05/17 09:00 01/09/17 09:08 (Lovenox Inj) 30 mg Q24H SQ 01/06/17 07:00 01/09/17 05:59 (Morphine Inj) 3 mg Q3H PRN IV PUSH 01/05/17 08:15 (Vitamin D3) 5,000 units DAILY PO 01/05/17 09:00 01/09/17 09:00 (Coumadin) 6 mg DAILY@16 PO 01/05/17 16:00 Hold 01/08/17 16:52 Acetaminophen/ Hydrocodone Bitart 1 tab 1 tab Q4H PRN PO 01/06/17 12:00 01/09/17 03:27 (Coumadin Consult Pharmacy) 0 ml @ 0 mls/hr UNSCH OTHER 01/06/17 14:30 Urinary Catheter: No Vascular Central Line Catheter: No A/P Problem List: (1) Fracture of femoral neck, right ICD Code: S72.001A Status: Acute Plan: sp Right hemiarthroplasty Pain controlled - continue Tylenol, [place] and morphine PRN Continue Lovenox SQ for prophylaxis - started 01/06/17 Continue Bowel Regime to prevent constipation Continue management as per orthopedic surgery - POD 3 -WBAT -posterior hip precautions -knee brace while in bed - for rehab placement, daughter admits trying to get placed in her BOO -continue coumadin -bridge with lovenox. Cleared by orthopedic surgery to be discharged once medically stable. (2) Atrial fibrillation ICD Code: I48.91 Status: Acute Plan: Now on sinus rythm - likely Paroxysmal. Continue metoprolol at same dose. Continue Warfarin - INR 1.5 today. continue to monitor PT/INR (3) History of DVT (deep vein thrombosis) ICD Code: Z86.718 Status: Acute Plan: Continue warfarin - restarted on 01/05/2017 INR trending up - 2.7 Continue to monitor PT/INR. (4) HTN (hypertension) ICD Code: I10 Status: Chronic Plan: Seems stable. continue amlodipine 2.5 mg daily, losartan 100 mg daily, HCTZ 12.5 mg daily. (5) Urinary retention ICD Code: R33.9 Status: Acute Plan: Abdominal pain on hypogastric region - distended bladder on palpation - Requested RN please to obtain a bladder scan - if retention then urinary catheter will be inserted. 01/09 Start voiding trial. Will Dc howell. Assessment and Plan Will add PPI for Gi prophylaxis DVT prophylaxis - Lovenox bridge to coumadin. Discharge Planning DVT prophylaxis: Lovenox SQ and oral Coumadin. Problem Qualifiers (1) Fracture of femoral neck, right: Qualified Code: S72.001D - Closed fracture of neck of right femur with routine healing, subsequent encounter (2) Atrial fibrillation: Qualified Code: I48.0 - Paroxysmal atrial fibrillation Adan Wiley MD Jan 09, 2017 18:28
[2017-01-09] MEDS: LACTATED RINGER'S 1000 ML IV SCH (20:07)
[2017-01-10] VITALS (7 sets, daily range): BP systolic 111–130; BP diastolic 54–77; PULSE 77–106; RESP 16–22; TEMP 95.2–98.9; O2SAT 95–97
[2017-01-10] MEDS: ENOXAPARIN SODIUM 30 MG/0.3 ML SYRINGE SQ SCH (05:43)
[2017-01-10] MEDS: ACETAMINOPHEN/HYDROcodone 325 MG/5 MG TAB PO PRN (05:43)
[2017-01-10 07:37] LABS: INTERNATIONAL NORMALIZED RATIO 3.4 RATIO; PROTHROMBIN TIME - PATIENT 40.2 SEC (9.8-11.6)
--- NOTE | 2017-01-10 08:01 | PD.ORT.PN ---
Subjective Subjective Remarks Resting comfortably with no new complaints Objective Vitals Vital Signs Date Time Temp Pulse Resp B/P Pulse Ox O2 Delivery O2 Flow Rate FiO2 01/10/17 00:00 98.9 86 16 114/65 96 01/09/17 20:00 95 110/48 01/09/17 19:58 98.2 100 18 106/59 95 01/09/17 16:00 97.6 98 18 117/66 96 01/09/17 13:49 95 01/09/17 12:00 97.1 98 18 101/52 95 01/09/17 08:00 97.5 92 18 125/61 95 I/O 01/09/17 01/09/17 01/09/17 01/10/17 01/10/17 01/10/17 07:00 15:00 23:00 07:00 15:00 23:00 Intake Total 150 ml 360 ml 240 ml 386 ml Output Total 325 ml 350 ml 275 ml 1 ml Balance -175 ml 10 ml -35 ml 385 ml Intake Oral 150 ml 360 ml 240 ml 240 ml IV Total 146 ml Output Urine Total 325 ml 350 ml 275 ml 1 ml # Voids 1 # Bowel Movements 1 1 0 1 Result Diagram: 01/06/17 0629 Other Results Laboratory Tests Test 01/10/17 06:48 Prothrombin Time 40.2 SEC (9.8-11.6) Prothromb Time International 3.4 RATIO Ratio Imaging Last Impressions Hip and Pelvis X-Ray 01/05/17 0801 Signed Impressions: Service Date/Time: Thursday, January 05, 2017 09:40 - CONCLUSION: 1. Status post right hip replacement with prosthesis in good position. Zane Hardy MD Chest X-Ray 01/03/17 1336 Signed Impressions: Service Date/Time: Tuesday, January 03, 2017 14:32 - CONCLUSION: 1. Negative chest. 2. There is no pneumothorax. I do not see a displaced fracture. Earnest Estrella MD FACR Procedures Right Femoral Neck Fx s/p hemiarthroplasty Objective Remarks RLE: dressings clean and dry. intact. NVI. symmetric lower extremity edema, 1+ Assessment & Plan Problem List: (1) Fracture of femoral neck, right (2) Deep vein blood clot of left lower extremity (3) Neurocognitive disorder (4) HLD (hyperlipidemia) (5) HTN (hypertension) (6) CAD (coronary artery disease) (7) Weakness Assessment and Plan 1) Right Femoral Neck Fx s/p hemiarthroplasty - POD 5 -WBAT -posterior hip precautions -knee brace while in bed -CM for rehab placement, daughter admits trying to get placed in her BOO -coumadin management by medical team -bridge with lovenox -plan for Dc to rehab/ [facility] today or when cleared by medical -f/u with [facility] or [facility] in 2 weeks ALEJANDRA RODRIGUEZ PA-C Jan 10, 2017 08:01
[2017-01-10] MEDS: amLODIPine BESYLATE 5 MG TAB PO SCH (09:00)
[2017-01-10] MEDS: OXYBUTYNIN CHLORIDE 5 MG TAB PO SCH (09:00)
[2017-01-10] MEDS: CHOLECALCIFEROL (VIT D3) 5000 UNIT CAP PO SCH (09:00)
[2017-01-10] MEDS: METOPROLOL TARTRATE 25 MG TAB PO SCH ×2 (09:00→20:38)
[2017-01-10] MEDS: DONEPEZIL HCL 5 MG TAB PO SCH (09:30)
[2017-01-10] MEDS: LOSARTAN 50 MG TAB PO SCH (09:31)
[2017-01-10] MEDS: HYDROCHLOROTHIAZIDE 12.5 MG CAP PO SCH (09:31)
[2017-01-10] MEDS: SODIUM CHLORIDE 0.9% FLUSH 5 ML FLUSH IVF SCH ×2 (09:32→20:38)
[2017-01-10] MEDS: WARFARIN SOD 6 MG TAB PO SCH ×2 (16:00→17:18)
[2017-01-10 16:01] LABS: AUTOMATED NEUTROPHIL # 4.6 TH/MM3 (1.8-7.7); BASOPHIL % 0.7 % (0.0-2.0); EOSINOPHIL # 0.3 TH/MM3 (0-0.4); EOSINOPHIL % 4.8 % (0.0-4.0); HEMATOCRIT 28.9 % (35.0-46.0); HEMO FLAGS DIFF FINAL; LYMPH % 17.5 % (9.0-44.0); LYMPHOCYTE # 1.2 TH/MM3 (1.0-4.8); MEAN CELL VOLUME 88.8 FL (80.0-100.0); MEAN CORPUSCULAR HEMOGLOBIN 29.4 PG (27.0-34.0); MEAN CORPUSCULAR HGB CONC 33.1 % (32.0-36.0); MONO % 7.7 % (0.0-8.0); NEUT % 69.3 % (16.0-70.0); PLATELET COUNT 158 TH/MM3 (150-450); RED BLOOD COUNT 3.25 MIL/MM3 (4.00-5.30); RED CELL DISTRIBUTION WIDTH 15.3 % (11.6-17.2); WHITE BLOOD COUNT 6.7 TH/MM3 (4.0-11.0)
[2017-01-10 16:05] LABS: ALT (GPT) 53 U/L (10-53); ANION GAP 10 MEQ/L (5-15); AST (GOT) 55 U/L (15-37); BICARBONATE 21.2 MEQ/L (21.0-32.0); BLOOD UREA NITROGEN 34 MG/DL (7-18); CHLORIDE 111 MEQ/L (98-107); SODIUM (NA) 142 MEQ/L (136-145)
[2017-01-10 16:10] LABS: ALKALINE PHOSPHATASE 112 U/L (45-117); GLOMERULAR FILTRATION RATE 67 ML/MIN (>89); TOTAL BILIRUBIN ADULT 0.4 MG/DL (0.2-1.0)
--- NOTE | 2017-01-10 17:37 | HHI.DCPOC ---
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 Avoid second hand smoke Call the 24-hour hour crisis hotline for domestic abuse at Adan Wiley MD Jan 10, 2017 17:36
--- NOTE | 2017-01-10 17:39 | HHI.DS ---
Discharge Summary Admission Date Jan 03, 2017 at 15:21 Discharge Date: Jan 11, 2017 Admitting Diagnosis fall/right hip fracture (1) Fracture of femoral neck, right ICD Code: S72.001A Diagnosis: Principal (2) Atrial fibrillation ICD Code: I48.91 Diagnosis: Principal (3) History of DVT (deep vein thrombosis) ICD Code: Z86.718 Diagnosis: Principal (4) HTN (hypertension) ICD Code: I10 Diagnosis: Principal (5) Urinary retention ICD Code: R33.9 Diagnosis: Principal Procedures Right hemiarthroplasty for femoral neck fracture. 01/05/2017. Brief History - From Admission Ms. Hayes is a pleasant 86-year-old female with a history of atrial fibrillation, DVT, blindness who presented to the emergency department on 2016 after she fell out of her bed. Patient denies any chest pain, shortness of breath, dizziness or lightheadedness prior to her fall. Hip and pelvis x- ray shows subcapital fracture of the right femoral neck. Patient denies any changes in her bowel or bladder habits. CBC/BMP: 01/10/17 1513 01/10/17 1513 Significant Findings Laboratory Tests Test 01/08/17 01/09/17 01/10/17 01/10/17 05:28 07:23 06:48 15:13 Prothrombin Time 16.5 SEC 31.7 SEC 40.2 SEC (9.8-11.6) (9.8-11.6) (9.8-11.6) Red Blood Count 3.25 MIL/MM3 (4.00-5.30) Hemoglobin 9.6 GM/DL (11.6-15.3) Hematocrit 28.9 % (35.0-46.0) Eosinophils (%) (Auto) 4.8 % (0.0-4.0) Chloride Level 111 MEQ/L (98-107) Blood Urea Nitrogen 34 MG/DL (7-18) Estimat Glomerular Filtration 67 ML/MIN (>89) Rate Random Glucose 116 MG/DL (74-106) Aspartate Amino Transf 55 U/L (15-37) (AST/SGOT) Total Protein 6.0 GM/DL (6.4-8.2) Albumin 1.9 GM/DL (3.4-5.0) Imaging Last Impressions Hip and Pelvis X-Ray 01/05/17 0801 Signed Impressions: Service Date/Time: Thursday, January 05, 2017 09:40 - CONCLUSION: 1. Status post right hip replacement with prosthesis in good position. Zane Hardy MD Chest X-Ray 01/03/17 1336 Signed Impressions: Service Date/Time: Tuesday, January 03, 2017 14:32 - CONCLUSION: 1. Negative chest. 2. There is no pneumothorax. I do not see a displaced fracture. Earnest Estrella MD FACR PE at Discharge GENERAL: Patient is blind. In no apparent distress. CARDIOVASCULAR: Normal rate and regular rhythm without murmurs, gallops, or rubs. RESPIRATORY: Good respiratory efforts. Breath sounds equal and clear to auscultation bilaterally. GASTROINTESTINAL: Abdomen soft, non-tender, non-distended. Normal active bowel sounds MUSCULOSKELETAL: Right knee splinted. Neurovascularly intact distally at the toes. NEURO: Alert. Normal speech PSYCH: Calm. Pt update on day of discharge No major overnight events. Pain controlled. Denies fevers or chills. Repeat labs ok. Patient to be discharged to [facility]. Discussed case with the mobile product manager and nicolle llanes would like for the patient to go back to [facility]. Will DC to [facility] with home health PT. Hospital Course (1) Fracture of femoral neck, right Pain controlled with Tylenol, [place] and morphine PRN Continue Lovenox SQ for prophylaxis - started 01/06/17 Bowel Regime to prevent constipation Continue management as per orthopedic surgery - POD 3 -WBAT -posterior hip precautions -knee brace while in bed Goal INR 2 to 3 Cleared by orthopedic surgery to be discharged once medically stable. (2) Atrial fibrillation Plan: Converted back to sinus rythm - likely Paroxysmal. Continue metoprolol at same dose. INR was supratherapeutic and coumadin was held. INR therapeutic with INR 2.6 upon discharge. Coumadin resumed. (3) History of DVT (deep vein thrombosis) Plan: Continued warfarin - restarted on 01/05/2017 (4) HTN (hypertension) Plan: BP has been on the lower side. Will discharge on Losartan - HCTZ 50 - 12.5 mg, Metoprolol 12.5 mgpo bid (5) Urinary retention Plan: Abdominal pain on hypogastric region - distended bladder on palpation - Requested RN please to obtain a bladder scan - if retention then urinary catheter will be inserted. 01/09 Start voiding trial. Will Dc howell. 01/10 Patient voiding. Urinary retention resolved. Pt Condition on Discharge: Stable Discharge Disposition: Discharge to SNF Discharge Time: > 30 minutes Discharge Instructions DIET: Follow Instructions for: Heart Healthy Diet Activities you can perform: See Additionl Instruction Other Activity Instructions: -WBAT -posterior hip precautions -knee brace while in bed -OOB with assistance only Follow up Referrals: Orthopedics - 01/19/17 @ [facility] with Bull Alcala MD PCP Follow-up - 1 Week New Medications: Cholecalciferol (Vitamin D3) 2,000 Unit Tab 2000 UNITS PO DAILY Nutritional Supplement Days 56 Ref 0 BOTTLE Ergocalciferol (Vitamin D) 50,000 Unit Cap 12743 UNITS PO Q7D Nutritional Supplement #8 Ref 0 CAP Hydrocodone-Acetaminophen ([place]) 10-325 Mg Tab 1 TAB PO Q4H PRN PAIN #60 Ref 0 TAB Walker/Adult/Folding (Walker/Adult/Folding) 1 Mis Mis 1 EA .ROUTE DIRECTED #1 Ref 0 EA Continued Medications: Aspirin (Ecotrin) 325 Mg Tab 325 MG PO HS Calcium Carbonate-Cholecalciferol (Calcium + D3) 600-200 Mg-Unit Tab 1 TAB PO DAILY TAB Donepezil (Donepezil) 10 Mg Tab 10 MG PO HS Dementia #30 Ref 0 TAB Escitalopram (Lexapro) 10 Mg Tab 10 MG PO HS #30 Ref 0 TAB Ferrous Sulfate (Ferrous Sulfate) 325 Mg Tab 325 MG PO BID Nutritional Supplement #30 Ref 0 TAB Furosemide (Lasix) 20 Mg Tab 20 MG PO DAILY #30 Ref 0 TAB Loratadine (Alavert) 10 Mg Tab 10 MG PO DAILY Allergy Management TAB Losartan-Hydrochlorothiazide (Hyzaar) 50-12.5 Mg Tab 1 TAB PO DAILY Blood Pressure Management #30 Ref 0 TAB Megestrol Liq (Megestrol Liq) 40 Mg/Ml Susp 400 MG PO BID Improve Appetite #240 Ref 0 ML Melatonin (Gnp Melatonin) 3 Mg Tab 3 MG PO HS Metoprolol Tartrate (Metoprolol Tartrate) 25 Mg Tab 12.5 MG PO BID #60 Ref 0 TAB Mirtazapine (Mirtazapine) 15 Mg Tab 15 MG PO HS Depression Control #30 Ref 0 TAB Oxybutynin ER 24 HR (Oxybutynin ER 24 HR) 10 Mg Tab 10 MG PO BID Overactive Bladder Ref 0 TAB Potassium Chloride ER (K-Tab) 10 Meq Tab 10 MEQ PO DAILY Electrolyte Replacement #30 Ref 0 TAB Warfarin (Warfarin) 6 Mg Tab 6 MG PO MoTuWeFrSa @ HS Blood Clot Prevention #30 Ref 0 TAB Adan Wiley MD Jan 10, 2017 17:39
[2017-01-10] MEDS ORDERED: WARF-20 PO (17:46)
--- NOTE | 2017-01-10 17:53 | HHI.PR ---
Subjective Remarks no manor overnight events pain controlled INR supratherapeutic denies cp/sob stable vital signs Objective Vitals Vital Signs Date Time Temp Pulse Resp B/P Pulse Ox O2 Delivery O2 Flow Rate FiO2 01/10/17 16:00 97.2 92 18 125/55 97 01/10/17 12:00 95.2 96 18 114/55 96 01/10/17 08:08 97 21 01/10/17 08:00 96.4 77 18 111/54 97 01/10/17 00:00 98.9 86 16 114/65 96 01/09/17 20:00 95 110/48 01/09/17 19:58 98.2 100 18 106/59 95 I/O 01/09/17 01/09/17 01/09/17 01/10/17 01/10/17 01/10/17 07:00 15:00 23:00 07:00 15:00 23:00 Intake Total 150 ml 360 ml 240 ml 386 ml 480 ml Output Total 325 ml 350 ml 275 ml 1 ml Balance -175 ml 10 ml -35 ml 385 ml 480 ml Intake Oral 150 ml 360 ml 240 ml 240 ml 480 ml IV Total 146 ml Output Urine Total 325 ml 350 ml 275 ml 1 ml # Voids 1 3 # Bowel Movements 1 1 0 1 1 Result Diagram: 01/10/17 1513 01/10/17 1513 Imaging Last Impressions Hip and Pelvis X-Ray 01/05/17 0801 Signed Impressions: Service Date/Time: Thursday, January 05, 2017 09:40 - CONCLUSION: 1. Status post right hip replacement with prosthesis in good position. Zane Hardy MD Chest X-Ray 01/03/17 1336 Signed Impressions: Service Date/Time: Tuesday, January 03, 2017 14:32 - CONCLUSION: 1. Negative chest. 2. There is no pneumothorax. I do not see a displaced fracture. Earnest Estrella MD FACR Objective Remarks GENERAL: Patient is blind. In no apparent distress. CARDIOVASCULAR: Normal rate and regular rhythm without murmurs, gallops, or rubs. RESPIRATORY: Good respiratory efforts. Breath sounds equal and clear to auscultation bilaterally. GASTROINTESTINAL: Abdomen soft, non-tender, non-distended. Normal active bowel sounds MUSCULOSKELETAL: Right knee splinted. Neurovascularly intact distally at the toes. NEURO: Alert. Normal speech PSYCH: Calm. Procedures Right hemiarthroplasty for femoral neck fracture. 01/05/2017. Medications and IVs Current Medications Medications (Trade) Dose Ordered Sig/Antonio Route Start Time Stop Time Status Last Admin (Tylenol) 650 mg Q4H PRN PO 01/03/17 15:30 01/06/17 14:13 (Zofran Inj) 4 mg Q6H PRN IVP 01/03/17 15:30 (Dulcolax Supp) 10 mg DAILY PRN MO 01/03/17 15:30 (Milk Of Magnesia Liq) 30 ml Q12H PRN PO 01/03/17 15:30 (Narcan Inj) 0.4 mg UNSCH PRN IV 01/03/17 15:30 (Lopressor) 25 mg BID PO 01/03/17 21:00 01/09/17 19:58 (Norvasc) 2.5 mg DAILY PO 01/04/17 09:00 01/09/17 09:08 (Aricept) 5 mg DAILY PO 01/04/17 09:00 01/10/17 09:30 (Ditropan) 10 mg DAILY PO 01/04/17 09:00 01/06/17 08:24 (Pill Splitter) 1 ea UNSCH PRN OTHER 01/04/17 09:00 (Cozaar) 100 mg DAILY PO 01/04/17 09:00 01/10/17 09:31 Hydrochlorothiazide 12.5 mg 12.5 mg DAILY PO 01/04/17 09:00 01/10/17 09:31 (Lr 1000 ml Inj) 1,000 ml @ 30 mls/hr Q24H IV 01/04/17 22:30 01/04/17 22:30 (NS Flush) 2 ml UNSCH PRN IVF 01/05/17 08:15 (NS Flush) 2 ml BID IVF 01/05/17 09:00 01/10/17 09:32 (Morphine Inj) 3 mg Q3H PRN IV PUSH 01/05/17 08:15 (Vitamin D3) 5,000 units DAILY PO 01/05/17 09:00 01/10/17 09:00 (Coumadin) 6 mg DAILY@16 PO 01/05/17 16:00 01/10/17 17:18 Acetaminophen/ Hydrocodone Bitart 1 tab 1 tab Q4H PRN PO 01/06/17 12:00 01/10/17 05:43 (Coumadin Consult Pharmacy) 0 ml @ 0 mls/hr UNSCH OTHER 01/06/17 14:30 Urinary Catheter: No Vascular Central Line Catheter: No A/P Problem List: (1) Fracture of femoral neck, right ICD Code: S72.001A Status: Acute Plan: sp Right hemiarthroplasty Pain controlled - continue Tylenol, [place] and morphine PRN Continue Lovenox SQ for prophylaxis - started 01/06/17 Continue Bowel Regime to prevent constipation Continue management as per orthopedic surgery - POD 3 -WBAT -posterior hip precautions -knee brace while in bed - Patient needs Coumadin as an outpatient - Hold upon discharge. Will order PT/INR that should be done at [facility]/SNF. This to be adressed by primary or MD available. Coumadin to be resumed after INR falls below 3. Goal INR 2 to 3 Cleared by orthopedic surgery to be discharged once medically stable. (2) Atrial fibrillation ICD Code: I48.91 Status: Acute Plan: Now on sinus rythm - likely Paroxysmal. Continue metoprolol at same dose. Continue Warfarin - INR 3.4 - hold Coumadin and resume after INR falls below 3. Goal INR 2 to 3. (3) History of DVT (deep vein thrombosis) ICD Code: Z86.718 Status: Acute Plan: Continue warfarin - restarted on 01/05/2017 INR trending up - INR 3.4. Manage as above (4) HTN (hypertension) ICD Code: I10 Status: Chronic Plan: BP has been on the lower side. Will discharge on Losartan - HCTZ 50 - 12.5 mg, Metoprolol 12.5 mgpo bid (5) Urinary retention ICD Code: R33.9 Status: Acute Plan: Abdominal pain on hypogastric region - distended bladder on palpation - Requested RN please to obtain a bladder scan - if retention then urinary catheter will be inserted. 01/09 Start voiding trial. Will Dc howell. 01/10 Patient voiding. Urinary retention resolved. Assessment and Plan Will add PPI for Gi prophylaxis DVT prophylaxis - Lovenox bridge to coumadin. Discharge Planning DVT prophylaxis: Lovenox SQ and oral Coumadin. Problem Qualifiers (1) Fracture of femoral neck, right: Qualified Code: S72.001D - Closed fracture of neck of right femur with routine healing, subsequent encounter (2) Atrial fibrillation: Qualified Code: I48.0 - Paroxysmal atrial fibrillation Adan Wiley MD Jan 10, 2017 17:53
[2017-01-10] MEDS: LACTATED RINGER'S 1000 ML IV SCH (20:36)
[2017-01-11 00:56] VITALS: BP 110/60; PULSE 76; RESP 17; TEMP 98.6; O2SAT 97
[2017-01-11 02:10] VITALS: O2SAT 96
--- NOTE | 2017-01-11 06:45 | PD.ORT.PN ---
Subjective Subjective Remarks Resting comfortably with no new complaints Objective Vitals Vital Signs Date Time Temp Pulse Resp B/P Pulse Ox O2 Delivery O2 Flow Rate FiO2 01/11/17 02:10 96 01/11/17 00:56 98.6 76 17 110/60 97 01/10/17 20:53 98.2 85 18 116/57 96 01/10/17 16:00 97.2 92 18 125/55 97 01/10/17 12:00 95.2 96 18 114/55 96 01/10/17 08:08 97 21 01/10/17 08:00 96.4 77 18 111/54 97 I/O 01/10/17 01/10/17 01/10/17 01/11/17 01/11/17 01/11/17 07:00 15:00 23:00 07:00 15:00 23:00 Intake Total 386 ml 600 ml 240 ml Output Total 1 ml Balance 385 ml 600 ml 240 ml Intake Oral 240 ml 600 ml 240 ml IV Total 146 ml Output Urine Total 1 ml # Voids 1 4 2 # Bowel Movements 1 2 1 Result Diagram: 01/10/17 1513 01/10/17 1513 Other Results Laboratory Tests Test 01/10/17 06:48 Prothrombin Time 40.2 SEC (9.8-11.6) Prothromb Time International 3.4 RATIO Ratio Imaging Last Impressions Hip and Pelvis X-Ray 01/05/17 0801 Signed Impressions: Service Date/Time: Thursday, January 05, 2017 09:40 - CONCLUSION: 1. Status post right hip replacement with prosthesis in good position. Zane Hardy MD Chest X-Ray 01/03/17 1336 Signed Impressions: Service Date/Time: Tuesday, January 03, 2017 14:32 - CONCLUSION: 1. Negative chest. 2. There is no pneumothorax. I do not see a displaced fracture. Earnest Estrella MD FACR Procedures Right Femoral Neck Fx s/p hemiarthroplasty Objective Remarks RLE: dressings clean and dry. intact. NVI. symmetric lower extremity edema, 1+ Assessment & Plan Problem List: (1) Fracture of femoral neck, right (2) Deep vein blood clot of left lower extremity (3) Neurocognitive disorder (4) HLD (hyperlipidemia) (5) HTN (hypertension) (6) CAD (coronary artery disease) (7) Weakness Assessment and Plan 1) Right Femoral Neck Fx s/p hemiarthroplasty - POD 6 -WBAT -posterior hip precautions -knee brace while in bed -coumadin management by medical team -bridge with lorena -plan for Dc to rehab/ [facility] today or when cleared by medical -f/u with [facility] or [facility] in 2 weeks ALEJANDRA RODRIGUEZ PA-C Jan 11, 2017 06:45
[2017-01-11 07:17] LABS: INTERNATIONAL NORMALIZED RATIO 2.6 RATIO; PROTHROMBIN TIME - PATIENT 30.1 SEC (9.8-11.6)
[2017-01-11 08:00] VITALS: BP 121/65; PULSE 82; RESP 16; TEMP 98.2; O2SAT 96
[2017-01-11] MEDS: OXYBUTYNIN CHLORIDE 5 MG TAB PO SCH (09:15)
[2017-01-11] MEDS: LOSARTAN 50 MG TAB PO SCH (09:15)
[2017-01-11] MEDS: CHOLECALCIFEROL (VIT D3) 5000 UNIT CAP PO SCH (09:15)
[2017-01-11] MEDS: HYDROCHLOROTHIAZIDE 12.5 MG CAP PO SCH (09:15)
[2017-01-11] MEDS: amLODIPine BESYLATE 5 MG TAB PO SCH (09:16)
[2017-01-11] MEDS: METOPROLOL TARTRATE 25 MG TAB PO SCH (09:16)
[2017-01-11] MEDS: SODIUM CHLORIDE 0.9% FLUSH 5 ML FLUSH IVF SCH (09:16)
[2017-01-11] MEDS: DONEPEZIL HCL 5 MG TAB PO SCH (09:16)
[2017-01-11] MEDS: ACETAMINOPHEN/HYDROcodone 325 MG/5 MG TAB PO PRN (09:44)
--- NOTE | 2017-01-11 10:03 | HHI.FF ---
Face to Face Verification Diagnosis: (1) Fracture of femoral neck, right (2) History of DVT (deep vein thrombosis) (3) Supratherapeutic INR (4) Atrial fibrillation (5) Deep vein blood clot of left lower extremity (6) Neurocognitive disorder Physical Therapy Order: Strength and gait training Home Health Nursing Order: Signs/symptoms of disease process Wound care and dressing changes Nursing assessment with vital signs I have seen patient Sandra Hayes on 01/11/17. My clinical findings support the need for the requested home health care services because: Deconditioned w/ increased weakness Limited ability to care for self High risk of falls I certify that my clinical findings support that this patient is homebound because: Unsteady gait/balance Unsafe to leave home unassisted Unable to use public transportation Adan Wiley MD Jan 11, 2017 10:03
[2017-01-11 11:14] VITALS: O2SAT 99
[2017-01-11] MEDS ORDERED: WARFARIN SOD 5 MG TAB PO SCH (16:00)
== END 2017-01-11 16:18 | DRG 470 ==
LOC: NEPC 13:20 → NEDA 15:21 → N06A 20:19
PROVIDERS: ADMIT Hospitalist; ATTEND Hospitalist
PROC: 0T9B70Z Drainage of Bladder with Drainage Device, Via Natural or Artificial Opening (ICD-10-PCS; 2017-01-03)
PROC: 30233K1 Transfusion of Nonautologous Frozen Plasma into Peripheral Vein, Percutaneous Approach (ICD-10-PCS; 2017-01-04)
PROC: 0SRR03A Replacement of Right Hip Joint, Femoral Surface with Ceramic Synthetic Substitute, Uncemented, Open Approach (ICD-10-PCS; principal; 2017-01-05 06:42)
DX: S72.011A Unspecified intracapsular fracture of right femur, initial encounter for closed fracture (principal); M62.82 Rhabdomyolysis; I48.91 Unspecified atrial fibrillation; R33.9 Retention of urine, unspecified; I10 Essential (primary) hypertension; I25.10 Atherosclerotic heart disease of native coronary artery without angina pectoris; I25.2 Old myocardial infarction; E78.00 Pure hypercholesterolemia, unspecified; F03.90 Unspecified dementia, unspecified severity, without behavioral disturbance, psychotic disturbance, mood disturbance, and anxiety; R26.0 Ataxic gait; E78.5 Hyperlipidemia, unspecified; Y93.89 Activity, other specified; W06.XXXA Fall from bed, initial encounter; Y92.012 Bathroom of single-family (private) house as the place of occurrence of the external cause; Z86.718 Personal history of other venous thrombosis and embolism; H54.8 Legal blindness, as defined in USA; Z95.1 Presence of aortocoronary bypass graft; Z79.01 Long term (current) use of anticoagulants
CPT/HCPCS: 36430; 51702; 71010; 73501; 73502; 80048; 80053; 81001; 82306; 85014; 85018; 85025; 85610; 85730; 86850; 86900; 86901; 86927; 93005; C1776; J0131; J0690; J1170; J1580; J1650; J2370; J2405; J3370; J3430; J7050; J7120; L1830; P9017

== ENCOUNTER → 2017-03-17 | Outpatient (CLI) | payer MEDICARE, OTHER ==
[~2017-03-17] MED LIST changes: +ALAV10TA10 PO; -ALLERGY PILL PO; -AMBI10TA PO; -AMLO2.5T PO; -ASPI325T PO; +DONE10TA7 PO; -DONE5TAB14 PO; +ERGO1CAP10 PO; +FERR325T PO; -FOLI20CA PO; +FURO1TAB62 PO; +GNP3TAB PO; +HYDR-3366 PO; +HYZA50TA2 PO; +K-TA10TA PO; -LOSA100T3 PO; -METO25 PO; +METO25TA3 PO; +MIRTA15 PO; -PREV10CA PO; -TAB-TAB PO; +VITA200012 PO; +WALKER/ADULT/FO1 MIS; +WARF-20 PO
--- NOTE | 2017-03-17 12:47 | MG ---
cc: DEMETRIA ORTIZ M.D. Lab No: Date: 03/17/2017 Age: 86 Sex: F Race: REQUESTING PHYSICIAN Dr. Escoto. An EEG was obtained on this 86-year-old patient being evaluated for shaking, decreased responsiveness, possible seizures. The patient is described as awake during the study. This is an outpatient EEG. The study shows frequent sharp with some rare spike discharges bilaterally, maximum left frontotemporal. The discharges are seen independently in either right or left hemisphere. There is associated generalized slowing including some mixture of rhythms. There are theta and delta rhythms. There is limited alpha activity. There are beta rhythms. At times these sharp discharges are frequent, though never rhythmic and there is no description of any clinical neurological change. Hyperventilation showed no significant change. INTERPRETATION Abnormal EEG because of frequent sharp discharges bilaterally maximum left frontotemporal. These discharges are seen independently and there is no associated clinical change. There is no rhythmic pattern to indicate ongoing ictal activity. 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 EEG report will be called to Dr. Escoto. Demetria Ortiz MD [facility]/TLL /12:22 PM /12:42 PM
== END ==
LOC: HEEG 09:51
PROVIDERS: ATTEND Psychiatry & Neurology Neurology
DX: R56.9 Unspecified convulsions (principal)
CPT/HCPCS: 95819